=== PATIENT | male | born 1960 | race Caucasian/White ===

== ENCOUNTER 2016-07-02 08:36 | Inpatient (IN) | payer MEDICARE ==
[2016-07-02] MEDS ORDERED: SODIUM CHLORIDE 0.9% 500 ML IV STA (08:48)
--- NOTE | 2016-07-02 08:55 | ED ---
General Adult HPI - General Stated complaint: WEAKNESS Time Seen by Provider: 07/02/16 08:45 Source: RN notes reviewed - History of Present Illness Initial comments: This is a 55-year-old male who presents emergency Department with a past medical history significant for brain cancer, 2 heart attacks and CLL. Patient also has a history of having elevated CPK levels according to the patient and the they don't know why. Patient states today he feels as though his CPK level is elevated. Patient states he tried to get up or walk and he became too weak in his legs to stand and thought he was going to fall over. Patient did not however fall over. Patient states he has burning in both of his legs which is another signs CPK levels are elevated. Patient states she's had this occur approximately 5 times in the past. Patient denies any recent fever or chills. Patient denies any headache patient denies any new numbness or focal weakness. Patient denies any chest pain palpitations difficult to breathing or shortness of breath. Patient denies abdominal pain patient denies nausea vomiting or diarrhea. - Related Data Home Medications Medication Instructions Recorded Confirmed Clopidogrel [Plavix] 75 mg PO DAILY 07/02/16 07/02/16 DULoxetine HCL [Cymbalta] 60 mg PO DAILY 07/02/16 07/02/16 Dextroamphetamine/Amphetamine 10 mg PO BID 07/02/16 07/02/16 [Adderall] Ondansetron Odt [Zofran ODT] 4 mg PO Q6H PRN 07/02/16 07/02/16 Pantoprazole Sodium 40 mg PO DAILY 07/02/16 07/02/16 levETIRAcetam [Keppra] 1,250 mg PO BID 07/02/16 07/02/16 oxyCODONE HCL 30 mg PO Q6H PRN 07/02/16 07/02/16 traZODone HCL 200 mg PO HS 07/02/16 07/02/16 Allergies Allergy/AdvReac Type Severity Reaction Status Date / Time No Known Allergies Allergy Verified 07/02/16 08:51 Review of Systems ROS Statement: Those systems with pertinent positive or pertinent negative responses have been documented in the HPI. ROS Other: All systems not noted in ROS Statement are negative. General Exam - General Exam Comments Initial Comments: GENERAL: Patient is well-developed and well-nourished. Patient is nontoxic and well- hydrated and is in mild distress. ENT: Neck is soft and supple. No significant lymphadenopathy is noted. Oropharynx is clear. Moist mucous membranes. Neck has full range of motion without eliciting any pain. EYES: The sclera were anicteric and conjunctiva were pink and moist. Extraocular movements were intact and pupils were equal round and reactive to light. Eyelids were unremarkable. PULMONARY: Unlabored respirations. Good breath sounds bilaterally. No audible rales rhonchi or wheezing was noted. CARDIOVASCULAR: There is a regular rate and rhythm without any murmurs gallops or rubs. ABDOMEN: Soft and nontender with normal bowel sounds. No palpable organomegaly was noted. There is no palpable pulsatile mass. SKIN: Skin is clear with no lesions or rashes and otherwise unremarkable. NEUROLOGIC: Patient is alert and oriented x3. Cranial nerves II through XII are grossly intact. Patient is weakness of the left community health representative which she states is normal. I could not appreciate any weakness in the dorsi or plantar flexion of the left leg compared to the right.. Normal speech, volume and content. Symmetrical smile. MUSCULOSKELETAL: Normal extremities with adequate strength and full range of motion. No lower extremity swelling or edema. No calf tenderness. LYMPHATICS: No significant lymphadenopathy is noted PSYCHIATRIC: Normal psychiatric evaluation. Course Vital Signs 07/02/16 07/02/16 07/02/16 08:42 09:41 10:11 Temperature 97.6 F Pulse Rate 82 70 68 Respiratory 20 18 18 Rate Blood Pressure 143/92 120/65 111/63 O2 Sat by Pulse 98 95 Oximetry 07/02/16 07/02/16 11:11 11:41 Temperature Pulse Rate 65 64 Respiratory 18 18 Rate Blood Pressure 121/66 121/72 O2 Sat by Pulse 95 96 Oximetry Medical Decision Making - Medical Decision Making EKG shows a normal sinus rhythm at 74 bpm. It was 164 QRS is 84 QT interval 382. Patient's EKG shows no ST segment elevation or depression or T-wave abdomen is noted Computed tomography scan of his brain showed no acute bleed however the radiologist did look at the MRI and it showed an area of concern possible recurrence of tumor. Patient's chest x-ray showed no acute abnormality. I spoke with Dr. Barber he agreed to admit the patient and consult Dr. Montano - Lab Data Result diagrams: 07/02/16 08:48 07/02/16 08:48 Lab Results 07/02/16 07/02/16 07/02/16 Range/Units 08:48 08:48 08:48 WBC 45.7 H* (3.8-10.6) k/uL RBC 4.73 (4.30-5.90) m/uL Hgb 13.4 (13.0-17.5) gm/dL Hct 39.5 (39.0-53.0) % MCV 83.4 (80.0-100.0) fL MCH 28.4 (25.0-35.0) pg MCHC 34.0 (31.0-37.0) g/dL RDW 14.6 (11.5-15.5) % Plt Count 118 L (150-450) k/uL Neutrophils % (Manual) 6.0 % Lymphocytes % (Manual) 92.0 % Monocytes % (Manual) 0.5 % Eosinophils % (Manual) 1.5 % Neutrophils # (Manual) 2.7 (1.3-7.7) k/uL Lymphocytes # (Manual) 42.0 H (1.0-4.8) k/uL Monocytes # (Manual) 0.2 (0-1.0) k/uL Eosinophils # (Manual) 0.7 (0-0.7) k/uL Nucleated RBCs 0 (0-0) /100 WBC Manual Slide Review Performed Poikilocytosis (manual Present PT 10.2 (9.0-12.0) sec INR 1.0 (<1.1) APTT 23.7 (22.0-30.0) sec Sodium 139 (137-145) mmol/L Potassium 4.3 (3.5-5.1) mmol/L Chloride 100 (98-107) mmol/L Carbon Dioxide 26 (22-30) mmol/L Anion Gap 13 mmol/L BUN 18 (9-20) mg/dL Creatinine 1.21 (0.66-1.25) mg/dL Est GFR (MDRD) Af Amer >60 (>60 ml/min/1.73 sqM) Est GFR (MDRD) Non-Af >60 (>60 ml/min/1.73 sqM) Glucose 117 H (74-99) mg/dL Calcium 8.8 (8.4-10.2) mg/dL Magnesium 1.8 (1.6-2.3) mg/dL Total Bilirubin 1.2 (0.2-1.3) mg/dL AST 23 (17-59) U/L ALT 47 (21-72) U/L Alkaline Phosphatase 108 (38-126) U/L Total Creatine Kinase (55-170) U/L CK-MB (CK-2) (0.0-2.4) ng/mL CK-MB (CK-2) Rel Index Troponin I (0.000-0.034) ng/mL Total Protein 6.7 (6.3-8.2) g/dL Albumin 4.3 (3.5-5.0) g/dL Urine Color Urine Appearance (Clear) Urine pH (5.0-8.0) Ur Specific [place] (1.001-1.035) Urine Protein (Negative) Urine Glucose (UA) (Negative) Urine Ketones (Negative) Urine Blood (Negative) Urine Nitrate (Negative) Urine Bilirubin (Negative) Urine Urobilinogen (<2.0) mg/dL Ur Leukocyte Esterase (Negative) 07/02/16 07/02/16 Range/Units 08:50 11:30 WBC (3.8-10.6) k/uL RBC (4.30-5.90) m/uL Hgb (13.0-17.5) gm/dL Hct (39.0-53.0) % MCV (80.0-100.0) fL MCH (25.0-35.0) pg MCHC (31.0-37.0) g/dL RDW (11.5-15.5) % Plt Count (150-450) k/uL Neutrophils % (Manual) % Lymphocytes % (Manual) % Monocytes % (Manual) % Eosinophils % (Manual) % Neutrophils # (Manual) (1.3-7.7) k/uL Lymphocytes # (Manual) (1.0-4.8) k/uL Monocytes # (Manual) (0-1.0) k/uL Eosinophils # (Manual) (0-0.7) k/uL Nucleated RBCs (0-0) /100 WBC Manual Slide Review Poikilocytosis (manual PT (9.0-12.0) sec INR (<1.1) APTT (22.0-30.0) sec Sodium (137-145) mmol/L Potassium (3.5-5.1) mmol/L Chloride (98-107) mmol/L Carbon Dioxide (22-30) mmol/L Anion Gap mmol/L BUN (9-20) mg/dL Creatinine (0.66-1.25) mg/dL Est GFR (MDRD) Af Amer (>60 ml/min/1.73 sqM) Est GFR (MDRD) Non-Af (>60 ml/min/1.73 sqM) Glucose (74-99) mg/dL Calcium (8.4-10.2) mg/dL Magnesium (1.6-2.3) mg/dL Total Bilirubin (0.2-1.3) mg/dL AST (17-59) U/L ALT (21-72) U/L Alkaline Phosphatase (38-126) U/L Total Creatine Kinase 55 (55-170) U/L CK-MB (CK-2) 1.2 (0.0-2.4) ng/mL CK-MB (CK-2) Rel Index 2.2 Troponin I <0.012 (0.000-0.034) ng/mL Total Protein (6.3-8.2) g/dL Albumin (3.5-5.0) g/dL Urine Color Yellow Urine Appearance Clear (Clear) Urine pH 5.5 (5.0-8.0) Ur Specific [place] 1.016 (1.001-1.035) Urine Protein Trace H (Negative) Urine Glucose (UA) Negative (Negative) Urine Ketones Negative (Negative) Urine Blood Negative (Negative) Urine Nitrate Negative (Negative) Urine Bilirubin Negative (Negative) Urine Urobilinogen <2.0 (<2.0) mg/dL Ur Leukocyte Esterase Negative (Negative) Disposition Clinical Impression: Thrombocytopenia, Leukocytosis, Generalized weakness Disposition: ADMITTED IP TO THIS [facility] Time of Disposition: 12:27
[2016-07-02 09:06] LABS: Aty Lym Flag Moderate; CHCM 34.9; HCT 39.5 % (39.0-53.0); HDW 3.08; HGB 13.4 gm/dL (13.0-17.5); MCH 28.4 pg (25.0-35.0); MCV 83.4 fL (80.0-100.0); Mean Platelet Volume 6.3; RBC 4.73 m/uL (4.30-5.90); RDW 14.6 % (11.5-15.5); WBC (Perox) 47.67
[2016-07-02 09:15] LABS: Partial Thromboplastin Time 23.7 sec (22.0-30.0); Prothrombin Time 10.2 sec (9.0-12.0)
[2016-07-02 09:16] LABS: WBC 45.7 k/uL (3.8-10.6)
[2016-07-02 09:20] LABS: Add Differential Manual Differential
[2016-07-02 09:23] LABS: Manual Review Performed; Nucleated Red Blood Cells 0 /100 WBC (0-0); Total Cells Counted 200
[2016-07-02 09:30] LABS: ALT 47 U/L (21-72); AST 23 U/L (17-59); Alkaline Phosphatase 108 U/L (38-126); Anion Gap 13 mmol/L; Blood Urea Nitrogen 18 mg/dL (9-20); Calcium 8.8 mg/dL (8.4-10.2); Carbon Dioxide 26 mmol/L (22-30); Chloride 100 mmol/L (98-107); Glucose 117 mg/dL (74-99); Magnesium 1.8 mg/dL (1.6-2.3); Non-African American GFR(MDRD) >60 (>60 ml/min/1.73 sqM); Potassium 4.3 mmol/L (3.5-5.1); Sodium 139 mmol/L (137-145); Total Bilirubin 1.2 mg/dL (0.2-1.3); Total Protein 6.7 g/dL (6.3-8.2)
[2016-07-02 09:34] LABS: Creatine Kinase 55 U/L (55-170)
--- NOTE | 2016-07-02 09:42 | XR ---
EXAMINATION TYPE: XR chest 2V DATE OF EXAM: 07/02/2016 9:32 AM COMPARISON: NONE HISTORY: Chest pain FINDINGS: There is a central interstitial pattern with cardiomegaly. Left-sided central line seen. No pneumotho rax. No pleural effusion. IMPRESSION: 1. Cardiomegaly. Interstitial pattern likely chronic on the basis of chronic interstitial lung diseas freya
[2016-07-02 09:47] LABS: Creatine Kinase MB 1.2 ng/mL (0.0-2.4); Troponin I <0.012 ng/mL (0.000-0.034)
[2016-07-02 11:49] LABS: Appearance,Urine Clear (Clear); Bilirubin,Urine Negative (Negative); Glucose,Urine (UA) Negative (Negative); Ketones,Urine Negative (Negative); Leukocyte Esterase,Urine Negative (Negative); Nitrite,Urine Negative (Negative); PH, Urine 5.5 (5.0-8.0); Protein,Urine Trace (Negative); Specific Gravity,Urine 1.016 (1.001-1.035); UA Billing (MACRO vs. MICRO) CHEM; Urobilinogen,Urine <2.0 mg/dL (<2.0)
--- NOTE | 2016-07-02 11:54 | CT ---
EXAMINATION TYPE: CT brain wo con DATE OF EXAM: 07/02/2016 11:01 AM COMPARISON: MRI brain June 24, 2016. HISTORY: Left sided weakness CT DLP: 1192 mGycm Automated exposure control for dose reduction was used. FINDINGS: There is no acute intracranial hemorrhage or midline shift identified. There is ventricular and sulca l prominence consistent with diffuse cerebral atrophy redemonstrated. Surgical changes from right pa rietal craniotomy with adjacent encephalomalacia and dystrophic calcification is redemonstrated. Enha ncing residual tumor may be present seen best on recent MRI in the deep aspect. Low-attenuation in th e periventricular white matter is again seen. This is nonspecific finding. The globes are intact and the visualized sinuses are clear. IMPRESSION: No acute intracranial hemorrhage or midline shift is seen. Postsurgical changes right parietal region are present with diffuse cerebral atrophy and right parietal encephalomalacia, nonspecific enhanceme nt on recent MRI suggests recurrent tumor may be present. Nonspecific white matter changes could refl ect product of chronic small vessel ischemic change, cerebral edema, or posttreatment changes. Overal l no significant change from recent MRI is noted.
[2016-07-02] MEDS ORDERED: SODIUM CHLORIDE 0.9% 1,000 ML IV ONE (12:28)
[2016-07-02 14:00] VITALS: BMI 34.2
[2016-07-02] MEDS: NICOTINE 21MG/24HR PATCH TRANSDERM SCH (16:22)
[2016-07-02] MEDS: levETIRAcetam 250 MG TAB PO SCH (19:52)
[2016-07-02] MEDS: traZODone HCL 100 MG TAB PO SCH (19:53)
[2016-07-03] MEDS: levETIRAcetam 250 MG TAB PO SCH ×2 (07:37→20:20)
[2016-07-03] MEDS: NICOTINE 21MG/24HR PATCH TRANSDERM SCH (07:38)
[2016-07-03] MEDS: PANTOPRAZOLE 40 MG TABLET PO SCH (07:38)
[2016-07-03] MEDS: CLOPIDOGREL 75 MG TAB PO SCH (07:38)
[2016-07-03] MEDS: DULoxetine HCL 60 MG CAPSULE.DR PO SCH (07:38)
--- NOTE | 2016-07-03 12:04 | P.CONS ---
History of Present Illness - Reason for Consult Consult date: 07/03/16 Generalized weakness. CLL and brain tumor - History of Present Illness The patient is a 55-year-old gentleman, who was recently seen by Dr. oshea in the office , to establish care, on 06/14/2016. The patient had presented initially in 04/15, in [place] with left-sided weakness and mental status changes. 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 A biopsy could not be performed initially because of an acute myocardial infarction at the same time. He was treated with neoadjuvant chemotherapy (type unknown), and concurrent radiation therapy. He subsequently had surgery which revealed mostly necrotic material. Progress notes that were seen by Dr. oshea from his previous physician apparently described small area of oligodendroglioma. The patient was then placed on Avastin and had that for about 6 months. This was then discontinued due to kidney complications. The patient does have a long- standing history of CLL, which has been followed without any need for treatment so far. Interestingly, he gives a history of about 3 episodes of muscle weakness and pain due to elevated CPKs, the most recent in September 2015. Per his the cause for this episodes is not known. Results of any workup in this regard are not available to us. Per his , he has not had a muscle biopsy. When seen by Dr. oshea in the office, the patient was complaining of increased generalized headaches, over the past few weeks as well as intermittent nausea. At that time apparently he had some weakness but overall and tolerating well. An MRI was done on 06/24/2016. Over the last week to 10 days, the patient has been having increased generalized weakness. Per his , he has developed progressive difficulty in walking, with muscles appearing to " contract", and "give out". He came into the emergency room due to progression of these symptoms. Labs revealed elevated white count in the 45, 000 range, with mostly lymphocytes seen. Platelets are mildly low at 118. He was admitted for further management. Review of Systems Constitutional: Reports weakness Eyes: denies blurred vision, denies pain Ears: deny: decreased hearing, ear discharge, earache, tinnitus Ears, nose, mouth and throat: Denies headache, Denies sore throat Cardiovascular: Reports as per HPI (History of CO), Reports decreased exercise tolerance Respiratory: Denies cough Gastrointestinal: Reports nausea, Denies abdominal pain, Denies diarrhea, Denies vomiting Genitourinary: Reports as per HPI (No specific complaint) Musculoskeletal: Reports as per HPI (History of elevated CPKs intermittently), Reports muscle cramps, Reports muscle weakness Integumentary: Denies pruritus, Denies rash Neurological: Reports as per HPI, Reports gait dysfunction, Reports weakness Psychiatric: Reports anxiety, Reports depression Endocrine: Denies fatigue, Denies weight change Hematologic/Lymphatic: Reports as per HPI Past Medical History Past Medical History: Cancer, Deep Vein Thrombosis (DVT), Hyperlipidemia, Memory Impairment, Myocardial Infarction ([place]), Osteoarthritis (OA), Seizure Disorder Additional Past Medical History / Comment(s): brain cancer, leukemia Last Myocardial Infarction Date:: 2012 History of Any Multi-Drug Resistant Organisms: None Reported Past Surgical History: Cholecystectomy, Heart Catheterization With Stent Additional Past Surgical History / Comment(s): brain surgery x2, IVF filter, metaport, fatty tumor removals, left knee orthoscopic Past Anesthesia/Blood Transfusion Reactions: No Reported Reaction Date of Last Stent Placement:: 2010 Past Psychological History: Anxiety, Depression Smoking Status: Current every day smoker Past Alcohol Use History: None Reported Past Drug Use History: None Reported - Past Family History Mother Family Medical History: Chest Pain / Angina, Diabetes Mellitus Father History Unknown: Yes Medications and Allergies Home Medications Medication Instructions Recorded Confirmed Type Clopidogrel [Plavix] 75 mg PO DAILY 07/02/16 07/02/16 History DULoxetine HCL [Cymbalta] 60 mg PO DAILY 07/02/16 07/02/16 History Dextroamphetamine/Amphetamine 10 mg PO BID 07/02/16 07/02/16 History [Adderall] Ondansetron Odt [Zofran ODT] 4 mg PO Q6H PRN 07/02/16 07/02/16 History Pantoprazole Sodium 40 mg PO DAILY 07/02/16 07/02/16 History levETIRAcetam [Keppra] 1,250 mg PO BID 07/02/16 07/02/16 History oxyCODONE HCL 30 mg PO Q6H PRN 07/02/16 07/02/16 History traZODone HCL 200 mg PO HS 07/02/16 07/02/16 History Allergies Allergy/AdvReac Type Severity Reaction Status Date / Time No Known Allergies Allergy Verified 07/02/16 08:51 Physical Exam Vitals: Vital Signs Temp Pulse Pulse Resp BP BP Pulse Ox 07/03/16 07:00 97.5 F L 59 L 16 111/60 94 L 07/02/16 22:06 97.2 F L 55 L 18 121/55 97 07/02/16 15:00 97.6 F 57 L 20 113/65 95 07/02/16 13:02 97.7 F 70 18 124/69 98 Intake and Output 07/02/16 07/03/16 07/03/16 22:59 06:59 14:59 Intake Total 600 Output Total 200 Balance 400 Intake: IV 600 Sodium Chloride 0.9% 1, 600 000 ml @ 75 mls/hr IV . [id number] ONE Rx#:[id number] Output: Urine 200 Other: # Voids 1 2 - Constitutional General appearance: no acute distress - EENT Eyes: EOMI, PERRLA ENT: hearing grossly normal, normal oropharynx - Neck Neck: no lymphadenopathy Thyroid: bilateral: normal size - Respiratory Respiratory: bilateral: CTA - Cardiovascular Rhythm: regular Heart sounds: normal: S1, S2 - Gastrointestinal General gastrointestinal: normal bowel sounds, soft - Integumentary Integumentary: normal - Neurologic Neurologic: CNII-XII intact, focal deficits (Left upper and lower extremity strength is 5 over 5, but slightly less compared to the right) - Musculoskeletal Musculoskeletal: generalized weakness, left sided weakness - Psychiatric Psychiatric: A&O x's 3, appropriate affect Results CBC & Chem 7: 07/02/16 08:48 07/02/16 08:48 CT Scan - head: report reviewed MRI - head: image reviewed Assessment and Plan (1) Generalized weakness Narrative/Plan: The etiology of this is not clear at this time. The patient does have some chronic left-sided weakness which is overall subtle. On examination strength in the left upper and lower extremities appears to be quite satisfactory. This presentation this time is more generalized as noted. He has had prior history of elevated CPKs, but these were normal this admission. The patient's MRI images reviewed. A formal report is not yet available, but per the CT brain report, which was compared to the MRI, there appears to be only a small area of vague enhancement possibly consistent with persistent or recurrent tumor. Per the , by description, this appears to be fairly stable compared to his prior MRI that was done out of town. She has contacted his previous position and the old MRI is being dispatched by that office. Once available, this will be submitted for comparison to see if there is really any progression or not. In the meantime, I will check Keppra levels and thyroid studies. A neurology consult will be initiated. I will also check an aldolase level Status: Acute (2) Leukocytosis Narrative/Plan: This is due to his known CLL, which has not required any treatment so far. His , his white blood cell count is higher than before. However he appears to have no specific symptoms related to that, with no adenopathy on exam, normal hemoglobin, and only a mildly low platelet count. Therefore at this time the CLL appears to be is asymptomatic, with no need for treatment. Rarely in CLL, autoimmune phenomenon can occur, even without any progression of the CLL itself. Theoretically a process like this, could cause the patient' s symptoms. However on less there is definite evidence of the same, there would be no indication for treating the CLL itself at this time Status: Acute
--- NOTE | 2016-07-03 14:47 | P.HPIM ---
History of Present Illness H&P Date: 07/03/16 Chief Complaint: Generalized weakness Patient is a 55-year-old male who presented to [facility] emergency room with a chief complaint of generalized weakness. Patient was initially in [place], where he was diagnosed in April 2014 with brain tumor he had a large right sided parietal tumor he was treated with chemotherapy and radiation therapy no biopsy was done initiated due to patient having myocardial infarction at the same time. Patient also has known history of CLL was elevated white blood count his white blood count was in the range of 45,000 on presentation Patient is living in this area currently he recently established was Dr. Montano for continuing his care. MRI of the brain was recently done, no reading is available, radiologist is waiting for old pictures for comparison prior to official reading. Past Medical History Past Medical History: Cancer, Deep Vein Thrombosis (DVT), Hyperlipidemia, Memory Impairment, Myocardial Infarction ([place]), Osteoarthritis (OA), Seizure Disorder Additional Past Medical History / Comment(s): brain cancer, leukemia Last Myocardial Infarction Date:: 2012 History of Any Multi-Drug Resistant Organisms: None Reported Past Surgical History: Cholecystectomy, Heart Catheterization With Stent Additional Past Surgical History / Comment(s): brain surgery x2, IVF filter, metaport, fatty tumor removals, left knee orthoscopic Past Anesthesia/Blood Transfusion Reactions: No Reported Reaction Date of Last Stent Placement:: 2010 Past Psychological History: Anxiety, Depression Smoking Status: Current every day smoker Past Alcohol Use History: None Reported Past Drug Use History: None Reported - Past Family History Mother Family Medical History: Chest Pain / Angina, Diabetes Mellitus Father History Unknown: Yes Medications and Allergies Home Medications Medication Instructions Recorded Confirmed Type Clopidogrel [Plavix] 75 mg PO DAILY 07/02/16 07/02/16 History DULoxetine HCL [Cymbalta] 60 mg PO DAILY 07/02/16 07/02/16 History Dextroamphetamine/Amphetamine 10 mg PO BID 07/02/16 07/02/16 History [Adderall] Ondansetron Odt [Zofran ODT] 4 mg PO Q6H PRN 07/02/16 07/02/16 History Pantoprazole Sodium 40 mg PO DAILY 07/02/16 07/02/16 History levETIRAcetam [Keppra] 1,250 mg PO BID 07/02/16 07/02/16 History oxyCODONE HCL 30 mg PO Q6H PRN 07/02/16 07/02/16 History traZODone HCL 200 mg PO HS 07/02/16 07/02/16 History Allergies Allergy/AdvReac Type Severity Reaction Status Date / Time No Known Allergies Allergy Verified 07/02/16 08:51 Physical Exam Vitals: Vital Signs Temp Pulse Resp BP Pulse Ox 07/03/16 07:00 97.5 F L 59 L 16 111/60 94 L 07/02/16 22:06 97.2 F L 55 L 18 121/55 97 07/02/16 15:00 97.6 F 57 L 20 113/65 95 Intake and Output 07/02/16 07/03/16 07/03/16 22:59 06:59 14:59 Intake Total 600 Output Total 200 Balance 400 Intake: IV 600 Sodium Chloride 0.9% 1, 600 000 ml @ 75 mls/hr IV . [id number] ONE Rx#:[id number] Output: Urine 200 Other: # Voids 1 2 In general patient is alert and oriented 3 in no apparent distress HEENT head normocephalic and atraumatic Neck is supple no JVD no goiter no lymphadenopathy Chest exam reveals a few scattered crackles no wheezing Cardiac exam reveals regular heart sounds no gallops no murmurs Abdomen is soft nontender no organomegaly Extremity exam reveals no edema no cyanosis or clubbing Results CBC & Chem 7: 07/02/16 08:48 07/02/16 08:48 Thrombosis Risk Factor Assmnt - Choose All That Apply Each Factor Represents 1 point: Acute [place], Age 41-60 years Other Risk Factors: Yes Each Risk Factor Represents 3 Points: History of DVT/PE Other congenital or acquired thrombophilia - If yes, enter type in comment: No Thrombosis Risk Factor Assessment Total Risk Factor Score: 5 Thrombosis Risk Factor Assessment Level: High Risk Assessment and Plan Plan: #1 generalized weakness and fatigue, cause is not entirely clear, could be related to his previous treatment for cancer, could be related to CLL, thyroid function is normal, no evidence of any acute infection at this time will follow closely awaiting further input from oncology #2 brain tumor awaiting MRI report #3 known history of CLL was leukocytosis #4 previous history of DVT in the right lower extremity with IV filter placement #5 history of coronary artery disease was previous history of myocardial infarction and a known history of angioplasty with stent placement
[2016-07-03 15:31] LABS: Appearance,Urine Clear (Clear); Bilirubin,Urine Negative (Negative); Glucose,Urine (UA) Negative (Negative); Ketones,Urine Negative (Negative); Leukocyte Esterase,Urine Negative (Negative); Nitrite,Urine Negative (Negative); PH, Urine 5.5 (5.0-8.0); Protein,Urine Negative (Negative); Specific Gravity,Urine 1.013 (1.001-1.035); UA Billing (MACRO vs. MICRO) CHEM; Urobilinogen,Urine <2.0 mg/dL (<2.0)
[2016-07-03] MEDS: traZODone HCL 100 MG TAB PO SCH (20:20)
[2016-07-03] MEDS: ONDANSETRON ODT 4 MG TAB PO PRN (20:20)
[2016-07-04] MEDS: PANTOPRAZOLE 40 MG TABLET PO SCH (07:48)
[2016-07-04] MEDS: levETIRAcetam 250 MG TAB PO SCH ×2 (07:48→21:45)
[2016-07-04] MEDS: DULoxetine HCL 60 MG CAPSULE.DR PO SCH (07:49)
[2016-07-04] MEDS: NICOTINE 21MG/24HR PATCH TRANSDERM SCH (07:49)
[2016-07-04] MEDS: CLOPIDOGREL 75 MG TAB PO SCH (07:49)
[2016-07-04 09:32] LABS: Aty Lym Flag Slight; CH 29.1; CHCM 34.6; HCT 40.6 % (39.0-53.0); HDW 3.08; HGB 13.3 gm/dL (13.0-17.5); MCH 27.8 pg (25.0-35.0); MCHC 32.7 g/dL (31.0-37.0); MCV 84.9 fL (80.0-100.0); Mean Platelet Volume 7.2; RBC 4.78 m/uL (4.30-5.90); RDW 14.6 % (11.5-15.5); WBC (Perox) 38.23
[2016-07-04 09:36] LABS: WBC 39.3 k/uL (3.8-10.6)
[2016-07-04 09:42] LABS: ALT 41 U/L (21-72); AST 21 U/L (17-59); Alkaline Phosphatase 101 U/L (38-126); Anion Gap 10 mmol/L; Blood Urea Nitrogen 14 mg/dL (9-20); Calcium 9.1 mg/dL (8.4-10.2); Carbon Dioxide 27 mmol/L (22-30); Chloride 102 mmol/L (98-107); Glucose 91 mg/dL (74-99); Non-African American GFR(MDRD) >60 (>60 ml/min/1.73 sqM); Sodium 139 mmol/L (137-145); Total Bilirubin 1.2 mg/dL (0.2-1.3); Total Protein 6.3 g/dL (6.3-8.2)
[2016-07-04 09:45] LABS: Potassium 4.6 mmol/L (3.5-5.1)
[2016-07-04 10:19] LABS: Add Differential Manual Differential
[2016-07-04 10:28] LABS: Band Neutrophils % 0.5 %; Manual Review Performed; Nucleated Red Blood Cells 0 /100 WBC (0-0); Total Cells Counted 200
[2016-07-04] MEDS ORDERED: LACTULOSE 20 GM/30 ML CUP PO ONE (11:48)
--- NOTE | 2016-07-04 12:09 | P.PN ---
Subjective This is a 55-year-old male with a known large right-sided parietal tumor. He presented with generalized weakness. Complaining of fatigue. Oncology has evaluated him and recommended neurology evaluation. Patient lying in bed comfortably. Complains of headache at times. reported to nursing that he' s been having constipation. Patient denies any abdominal pain. Denies any nausea or vomiting. Denies any chest pain or shortness of breath. Denies any difficulty urinating. Objective - Vital Signs Vital signs: Vital Signs Temp 97.8 F 07/04/16 07:00 Pulse 58 L 07/04/16 07:00 Resp 16 07/04/16 07:00 BP 113/64 07/04/16 07:00 Pulse Ox 92 L 07/04/16 07:00 Intake & Output 07/03/16 07/04/16 07/04/16 18:59 06:59 18:59 Intake Total 2009 Balance 2009 Intake: Oral 2009 Other: # Voids 1 3 - Exam Head normocephalic Neck supple Lungs clear to auscultation bilaterally no wheezing or crackles Heart regular rate and rhythm S1-S2, no rub or gallop Abdomen is soft nontender nondistended positive bowel sounds no hepatosplenomegaly Extremities no edema Neuro alert and orientated to 3 - Labs CBC & Chem 7: 07/04/16 08:48 07/04/16 08:48 Labs: Abnormal Lab Results - Last 24 Hours (Table) 07/04/16 Range/Units 08:48 WBC 39.3 H* (3.8-10.6) k/uL Plt Count 107 L (150-450) k/uL Lymphocytes # (Manual) 34.4 H (1.0-4.8) k/uL Assessment and Plan Plan: #1 generalized weakness and fatigue, cause is not entirely clear, could be related to his previous treatment for cancer, could be related to CLL, thyroid function is normal, no evidence of any acute infection at this time will follow closely. Patient seen by oncology. They recommended neurology evaluation. #2 brain tumor awaiting MRI report #3 known history of CLL was leukocytosis #4 previous history of DVT in the right lower extremity with IV filter placement #5 history of coronary artery disease was previous history of myocardial infarction and a known history of angioplasty with stent placement #6 constipation: We'll give 1 dose of lactulose and start Colace 100 milligrams twice a day
[2016-07-04] MEDS: DOCUSATE 100 MG CAP PO SCH ×2 (12:11→21:44)
[2016-07-04] MEDS: NON-FORMULARY DRUG (Dextroamphetamine/Amphetamine [Adderall] 10 MG) PO SCH (16:45)
[2016-07-04] MEDS: HYDROmorphone 1 MG/ML 1 ML SYRINGE IVP PRN (19:20)
[2016-07-04] MEDS: traZODone HCL 100 MG TAB PO SCH (21:45)
--- NOTE | 2016-07-04 22:40 | P.CNNES ---
History of Present Illness Consult date: 07/04/16 Requesting physician: Price Stevenson Reason for Consult: Muscle Weakness Chief complaint: Muscle Weakness- Left Side History of Present Illness: patient is a 55-year-old male presented to [facility] emergency department with generalized weakness. 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 Biopsy was not performed at that time to do a concurrent myocardial infarction occurring. He had a large right-sided parietal tumor that was treated with chemotherapy, radiation therapy and a debulking or removal of necrotic material. 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 patient was placed on Avastin for possibly 6 months. This was discontinued due to kidney complications. 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 Patient does have muscle weakness and pain due to elevated CPKs, the most recent in September 2015. The underlying etiology for this is unknown. Other supporting medical documentation is limited at this time. Over the past several weeks, the patient's been complaining of increased generalized headaches, as well as intermittent nausea. He did have some generalized weakness but overall is tolerating the condition well. MRI was done on June 24, 2016. Since that time the patient's generalized weakness has been increasing. He has reportedly developed progressive difficulty in ambulating, with muscles appearing to contract and give out. Laboratory analysis revealed elevated white blood counts in the 45,000 range with mostly lymphocytes seen. Platelets are mildly low at 118. At that time he was admitted for further management. On contact, the patient is alert and oriented 3 supine in bed with his at his side. He is in no acute distress. Patient reports weakness of the left upper and lower extremities, intermittent but recurring upper extremity stiffness and spasticity. Review of Systems I'll systems not previously noted above are negative. Past Medical History Past Medical History: Cancer, Deep Vein Thrombosis (DVT), Hyperlipidemia, Memory Impairment, Myocardial Infarction (GA), Osteoarthritis (OA), Seizure Disorder Additional Past Medical History / Comment(s): brain cancer, leukemia Last Myocardial Infarction Date:: 2012 History of Any Multi-Drug Resistant Organisms: None Reported Past Surgical History: Cholecystectomy, Heart Catheterization With Stent Additional Past Surgical History / Comment(s): brain surgery x2, IVF filter, metaport, fatty tumor removals, left knee orthoscopic Past Anesthesia/Blood Transfusion Reactions: No Reported Reaction Date of Last Stent Placement:: 2010 Past Psychological History: Anxiety, Depression Smoking Status: Current every day smoker Past Alcohol Use History: None Reported Past Drug Use History: None Reported - Past Family History Mother Family Medical History: Chest Pain / Angina, Diabetes Mellitus Father History Unknown: Yes Medications and Allergies Home Medications Medication Instructions Recorded Confirmed Type Clopidogrel [Plavix] 75 mg PO DAILY 07/02/16 07/02/16 History DULoxetine HCL [Cymbalta] 60 mg PO DAILY 07/02/16 07/02/16 History Dextroamphetamine/Amphetamine 10 mg PO BID 07/02/16 07/02/16 History [Adderall] Ondansetron Odt [Zofran ODT] 4 mg PO Q6H PRN 07/02/16 07/02/16 History Pantoprazole Sodium 40 mg PO DAILY 07/02/16 07/02/16 History levETIRAcetam [Keppra] 1,250 mg PO BID 07/02/16 07/02/16 History oxyCODONE HCL 30 mg PO Q6H PRN 07/02/16 07/02/16 History traZODone HCL 200 mg PO HS 07/02/16 07/02/16 History Allergies Allergy/AdvReac Type Severity Reaction Status Date / Time No Known Allergies Allergy Verified 07/02/16 08:51 Physical Examination - Vital Signs Vital Signs: Vital Signs Temp Pulse Resp BP Pulse Ox 07/04/16 15:00 97.7 F 53 L 18 118/66 97 07/04/16 07:00 97.8 F 58 L 16 113/64 92 L 07/03/16 22:32 97.6 F 63 16 120/67 94 L 07/03/16 22:30 63 16 Intake and Output 07/04/16 07/04/16 07/04/16 06:59 14:59 22:59 Intake Total 240 Balance 240 Intake: Oral 240 Other: # Voids 3 3 - Constitutional General appearance: average body habitus, cooperative, no disheveled, no acute distress - EENT Patient is noted to have left side peripheral vision decline, decreased acuity in the left eye, decreased depth perception in the left eye. EENT: ATNC, PERRL, hearing intact - Respiratory no increased work of breathing - Cardiovascular regular rate and rhythm - Gastrointestinal nontender nondistended - Integumentary Integumentary: normal - Neurologic Cranial nerve II: Decreased peripheral vision- the left eye Decreased visual acuity and depth perception- left eye. Finger to nose reproducible -dysmetria with the left hand Cranial nerve III: Slight left upper eyelid ptosis. Cranial nerve IV: No deficits noted Cranial nerve V: No deficits noted Cranial nerves : No deficits noted Cranial nerve VII: Slight ptosis of the left upper eyelid left upper lip droopvery slight Cranial nerve VIII: Decreased hearing acuity in the left ear versus right Cranial nerve IX and cranial nerve X: No deficits noted Cranial nerve XI: No deficits noted Cranial nerve XII: No deficit noted Sensory: Right facial greater than left Right upper extremity greater than left Left lower extremity greater than right No seizure-like activity noted during physical exam Speech and language were normal - Musculoskeletal Generalized weakness, left-sided greater than right both upper and lower extremites. Weakness on left upper and lower extremity testing especially with resistance to extension. Musculoskeletal: no fluid collection, normal range of motion - Psychiatric Psychiatric: mood/affect appropriate, cooperative Results - Laboratory Findings CBC and BMP: 07/04/16 08:48 07/04/16 08:48 Abnormal Lab Findings: Abnormal Labs 07/04/16 08:48 WBC 39.3 H* Plt Count 107 L Lymphocytes # (Manual) 34.4 H - Diagnostic Findings Comments: CT of the brain reports when compared with MRI there appears to be only a small area of vague enhancement possibly consistent with persistent or recurrent tumor. The old MRI from [place] has been requested and is reportedly going to arrive tomorrow for comparison. Assessment and Plan (1) Generalized weakness Status: Acute (2) Intracranial space-occupying lesion on diagnostic imaging Narrative/Plan: It is noted that the patient possibly has consistent/persistent recurrent tumor. Until the imaging can be compared, it is unknown if the patient's current status is related to an increase from his previous baseline. On physical exam, the patient does have noted visual acuity decline on the left , depth perception decline in the left eye as well as left hearing decline. He also has sensory differences in the upper versus lower extremities as well as decreased strength in the left side. (see PE notations) I am going to order an EEG to further investigate any other neurological underlying neurological etiology. Awaiting further documentation from [place] with further recommendations to follow. Continue with current medication regime. Continue with seizure and fall precautions Keppra level ordered for 07/05/16 Continue neuro checks q4 hrs. Call with any questions or concerns Neurology will continue to follow. Status: Acute
[2016-07-05] MEDS: HYDROmorphone 1 MG/ML 1 ML SYRINGE IVP PRN ×2 (05:59→15:00)
[2016-07-05] MEDS: NICOTINE 21MG/24HR PATCH TRANSDERM SCH (06:13)
[2016-07-05] MEDS: ACETAMINOPHEN TAB 325 MG TAB PO PRN (06:37)
[2016-07-05 08:26] LABS: Aty Lym Flag Slight; CH 28.7; CHCM 34.4; HCT 35.4 % (39.0-53.0); HDW 3.04; HGB 12.1 gm/dL (13.0-17.5); MCH 28.8 pg (25.0-35.0); MCHC 34.2 g/dL (31.0-37.0); MCV 84.1 fL (80.0-100.0); Mean Platelet Volume 6.8; RBC 4.21 m/uL (4.30-5.90); RDW 14.3 % (11.5-15.5); WBC (Perox) 29.26
[2016-07-05 08:46] LABS: ALT 38 U/L (21-72); AST 16 U/L (17-59); Alkaline Phosphatase 92 U/L (38-126); Anion Gap 13 mmol/L; Blood Urea Nitrogen 15 mg/dL (9-20); Calcium 8.4 mg/dL (8.4-10.2); Carbon Dioxide 25 mmol/L (22-30); Chloride 101 mmol/L (98-107); Glucose 153 mg/dL (74-99); Non-African American GFR(MDRD) >60 (>60 ml/min/1.73 sqM); Sodium 139 mmol/L (137-145); Total Protein 5.7 g/dL (6.3-8.2)
[2016-07-05] MEDS: levETIRAcetam 250 MG TAB PO SCH ×2 (09:25→20:43)
[2016-07-05] MEDS: CLOPIDOGREL 75 MG TAB PO SCH (09:26)
[2016-07-05] MEDS: DOCUSATE 100 MG CAP PO SCH ×2 (09:26→20:43)
[2016-07-05] MEDS: PANTOPRAZOLE 40 MG TABLET PO SCH (09:26)
[2016-07-05] MEDS: DULoxetine HCL 60 MG CAPSULE.DR PO SCH (09:26)
[2016-07-05] MEDS: NON-FORMULARY DRUG (Dextroamphetamine/Amphetamine [Adderall] 10 MG) PO SCH ×2 (10:15→16:38)
[2016-07-05 10:32] LABS: Add Differential Manual Differential
[2016-07-05 10:36] LABS: Nucleated Red Blood Cells 0 /100 WBC (0-0); Total Cells Counted 100
[2016-07-05] MEDS ORDERED: DIAZEPAM 5 MG TAB PO STA (11:34)
[2016-07-05] MEDS: ONDANSETRON ODT 4 MG TAB PO PRN (15:19)
--- NOTE | 2016-07-05 15:39 | P.PN ---
Subjective Patient is scheduled for brain MRI today. He is requesting valium as his claustrophobic. Objective - Vital Signs Vital signs: Vital Signs Temp 98.4 F 07/05/16 14:47 Pulse 63 07/05/16 14:47 Resp 16 07/05/16 14:47 BP 127/59 07/05/16 14:47 Pulse Ox 96 07/05/16 14:47 Intake & Output 07/04/16 07/05/16 07/05/16 18:59 06:59 18:59 Intake Total 940 450 Output Total 200 Balance 740 450 Intake: IV 450 Sodium Chloride 0.9% 1, 450 000 ml @ 75 mls/hr IV . [id number] ONE Rx#:[id number] Oral 940 Output: Urine 200 Other: # Voids 3 2 # Bowel Movements 1 - Exam General: The patient is awake and alert, in no distress Eye: there is normal conjunctiva bilaterally. Neck: The neck is supple, there is no JVD. Cardiovascular: Normal S1-S2, no S3-S4, no murmurs. Respiratory: Lungs clear to auscultation bilaterally Gastrointestinal: Abdomen is soft, nontender Musculoskeletal: There is no pedal edema. Neurological:. Speech is normal. Skin: Skin is warm and dry - Labs CBC & Chem 7: 07/05/16 07:51 07/05/16 07:51 Labs: Abnormal Lab Results - Last 24 Hours (Table) 07/05/16 07/05/16 Range/Units 07:51 07:51 WBC 28.0 H* (3.8-10.6) k/uL RBC 4.21 L (4.30-5.90) m/uL Hgb 12.1 L (13.0-17.5) gm/dL Hct 35.4 L (39.0-53.0) % Plt Count 102 L (150-450) k/uL Lymphocytes # (Manual) 24.9 H (1.0-4.8) k/uL Glucose 153 H (74-99) mg/dL AST 16 L (17-59) U/L Total Protein 5.7 L (6.3-8.2) g/dL Assessment and Plan Plan: #1 generalized weakness and fatigue, multifactorial, could be related to underlying malignancy. thyroid function is normal, no evidence of any acute infection at this time will follow closely. #2 history of primary glioma of the brain status post chemo and radiation therapy in the past: Oncology following. Concerns about recurrence of his disease. MRI ordered today. #3 underlying CLL with chronic leukocytosis #4 previous history of DVT in the right lower extremity with IV filter placement #5 history of coronary artery disease with stent placement #6 constipation: started Colace 100 milligrams twice a day Patient was seen and evaluated by oncology and neurology. Appreciate fundraising consultant recommendations. Awaiting MRI report.
--- NOTE | 2016-07-05 18:45 | MR ---
EXAMINATION TYPE: MR kirstinine/lspine wo/w con DATE OF EXAM: 07/05/2016 1:35 PM COMPARISON: NONE HISTORY: left upper extremity weakness CONTRAST: Performed utilizing 20 mL intravenous MultiHance gadolinium contrast. TECHNIQUE: Multiplanar multiecho imaging on a 3.0 Jennifer magnet is performed through the cervical spin e. FINDINGS: The craniovertebral junction is normal. Vertebral body alignment is normal. Multiple lym ph nodes are identified within the bilateral neck. Consider additional workup of the lymphadenopathy. C7-T1: No focal disc herniation or significant disc bulge is evident. No spinal canal stenosis or n eural foraminal stenosis is present. C6-7: No focal disc herniation or significant disc bulge is evident. No spinal canal stenosis or verna ral foraminal stenosis is present. C5-6: Disc bulge is present with moderate anterior thecal sac flattening. No AP spinal canal stenosis is present. Moderate right and mild left foraminal narrowing is present. Some cord contact from the disc bulge is present.. C4-5: Central left paracentral mild disc bulge is present with mild anterior thecal sac compression. Mild right foraminal narrowing is present. No spinal canal stenosis is present.. C3-4: No focal disc herniation or significant disc bulge is evident. No spinal canal stenosis or verna ral foraminal stenosis is present. C2-3: No focal disc herniation or significant disc bulge is evident. No spinal canal stenosis or verna ral foraminal stenosis is present. No abnormal enhancement is evident. Mild disc space narrowing is present C5-C6. Remaining disc height s are preserved. Vertebral body heights are preserved. IMPRESSIONS: 1. Disc bulge C5-6 with moderate flattening. Some cord contact is present. 2. Mild left paracentral disc bulge C4-5 without cord contact or stenosis. EXAMINATION TYPE: MR saturnino/jebpine wo/w con DATE OF EXAM: 07/05/2016 1:35 PM COMPARISON: NONE HISTORY: left upper extremity weakness CONTRAST: 20 mL intravenous MultiHance. TECHNIQUE: Multiplanar, multisequence images of the lumbar spine were acquired. FINDINGS: L5-S1: No significant disc bulge or disc herniation. No spinal canal stenosis. Facet hypertrophy is present. Neural foramen are patent.. L4-L5: No significant disc bulge or disc herniation. No spinal canal stenosis. Marked facet hypertr ophy is present. Some ligamentum flavum laxity is present with posterior lateral thecal sac compressi on. Neural foramen are patent. L3-L4: No significant disc bulge or disc herniation. No spinal canal stenosis. Mild facet hypertrop hy is present. Neural foramen are patent.. L2-L3: No significant disc bulge or disc herniation. No spinal canal stenosis. Neural foramen are pa tent.. L1-L2: No significant disc bulge or disc herniation. No spinal canal stenosis. Neural foramen are pa tent.. T12-L1: No significant disc bulge or disc herniation. No spinal canal stenosis. Neural foramen are p atent.. No abnormal enhancement. Cord terminates at the L1-L2 level. Disc desiccation is present L5-S1. Remai tera disc heights are preserved. Remaining disc hydration levels appear preserved. IMPRESSION: 1. Facet hypertrophy L4-5 with posterior lateral thecal sac compression. No stenosis is present.
[2016-07-05] MEDS: traZODone HCL 100 MG TAB PO SCH (20:43)
[2016-07-05] MEDS: HEPARIN SODIUM,PORCINE 5,000 UNIT/ML 1 ML VIAL SQ SCH (20:52)
--- NOTE | 2016-07-05 23:07 | P.PN ---
Subjective Principal diagnosis: Muscle Weakness The patient is a 55-year-old male who presented to [facility] emergency department with generalized weakness. He was initially residing in [place] where he was diagnosed in April 2014 with brain tumor, consistent with a primary glioma on MRI. Biopsy was not performed at that time due to a concurrent myocardial infarction. He had a large right-sided parietal tumor that was treated with chemotherapy, radiation therapy and a debulking removal of necrotic material. Progress notes reference by primary care provider notes that the tumor was describes a small area of Oligodendroglioma. Patient was placed on a vast in for possibly up to 6 months. This was discontinued due to kidney complications. 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 Patient does have muscle weakness and pain due to elevated CPKs, the most recent in September 2015. The underlying etiology for this is unknown. Other supporting medical documentation is limited at this time. Over the past several weeks, the ijeoma has been complaining of increased generalized headaches, as well as intermittent nausea. He did have some generalized weakness but overall is tolerating the condition well. An MRI of the brain was done on June 24, 2016. Initially the patient's generalized weakness had been increasing. It does appear that his weakness has stabilized. Prior to admission he reportedly developed progressive difficulty in ambulating with muscles appearing to maya give out. Initial white blood cell counts were elevated in the 45,000 range with mostly lymphocytes seen. Platelets were mildly low at 118. I contacted, the patient is alert and oriented 3 supine in bed. He is in no acute distress. Patient still reports weakness of the upper and lower extremities on the left with intermittent but recurring upper extremity stiffness and spasticity. Objective - Vital Signs Vital signs: Vital Signs Temp 98.4 F 07/05/16 14:47 Pulse 63 07/05/16 14:47 Resp 16 07/05/16 14:47 BP 127/59 07/05/16 14:47 Pulse Ox 96 07/05/16 14:47 Intake & Output 07/05/16 07/05/16 07/06/16 06:59 18:59 06:59 Intake Total 940 450 Output Total 200 Balance 740 450 Intake: IV 450 Sodium Chloride 0.9% 1, 450 000 ml @ 75 mls/hr IV . [id number] ONE Rx#:[id number] Oral 940 Output: Urine 200 Other: # Voids 2 # Bowel Movements 1 - Exam General: The patient is awake and alert, in no distress HEENT: there is normal conjunctiva bilaterally, head has noted prior surgical scar in the right posterior region. Neck: The neck is supple, there is no JVD. Cardiovascular: Normal rate and rhythm Respiratory: no increased work of breathing Gastrointestinal: Abdomen is soft, nontender Musculoskeletal: There is no pedal edema. Skin: Skin is warm and dry - Neurologic Neurologic Comment(s): Cranial nerve II: Decreased peripheral visionleft eye Decreased visual acuity and depth perceptionleft eye Finger to nose reproducibledysmetria with the left hand. Cranial nerve III: Slight upper eyelid ptosis. cranial nerve IV: No deficits noted Cranial nerve V: No deficits noted Cranial nerve : No deficits noted Cranial nerve VII: Slight ptosis of the left upper eyelid Left upper lip droopvery slight Cranial nerve VIII: Decreased hearing acuity in the left ear versus right Cranial nerve IX and cranial nerve X: No deficits noted Cranial nerve XI: No deficits noted Cranial nerve XII: No deficits noted Sensory: Right facial = left facial Right upper extremity = left upper extremity Right lower extremity = left lower extremity No seizure-like activity noted on physical exam Speech and language were normal - Musculoskeletal Musculoskeletal Comment(s): generalized weakness, left side greater than right upper and lower extremities. Left-sided weakness especially noted with resistance to extension. - Psychiatric Psychiatric: Present: A&O x's 3, appropriate affect, intact judgment & insight ( MRI brachial plexus still pending) - Labs CBC & Chem 7: 07/05/16 07:51 07/05/16 07:51 Labs: Abnormal Lab Results - Last 24 Hours (Table) 07/05/16 07/05/16 Range/Units 07:51 07:51 WBC 28.0 H* (3.8-10.6) k/uL RBC 4.21 L (4.30-5.90) m/uL Hgb 12.1 L (13.0-17.5) gm/dL Hct 35.4 L (39.0-53.0) % Plt Count 102 L (150-450) k/uL Lymphocytes # (Manual) 24.9 H (1.0-4.8) k/uL Glucose 153 H (74-99) mg/dL AST 16 L (17-59) U/L Total Protein 5.7 L (6.3-8.2) g/dL Assessment and Plan (1) Generalized weakness Status: Acute (2) Intracranial space-occupying lesion on diagnostic imaging Status: Acute (3) Muscle weakness (generalized) Narrative/Plan: It is noted that the patient possibly has consistent/persistent recurrent tumor. Until the imaging can be compared, it is unknown if the patient's current status is related to an increase from his previous baseline. Although the patient does have a history of elevated CPK, his CPK level was noted as normal at 55. It is doubtful that the patient's current condition is related to a myopathy. If necessary patient can be followed outpatient for a muscle biopsy if it is learned that further diagnostic workup is necessary. On physical exam, the patient does have noted visual acuity decline on the left , depth perception decline in the left eye as well as left hearing decline. His sensory differences in the upper versus lower extremities have resolved over the past 24 hours. Decreased strength in the left side appears to have stabilized. (see PE notations) EEG is still pending Awaiting further documentation from previous [place] with further recommendations to follow. MRI cervical: Disc bulge C5-6 with moderate flattening. Some cord contact is present. Mild left paracentral disc bulge C4-5 without cord contact or stenosis. The cranial vertebral junction is normal. Vertebral body height alignment is normal. Multiple lymph nodes are identified within the bilateral neck. Consider additional workup of the lymphadenopathy. Patient does have various disc bulges, facet changes and other findings that can be followed up in outpatient and would not contribute to the weakness as noted in the patient' s upper extremity. Based on Cervical MRI findings, I do recommend an oncology consult which was already pending. MRI lumbar spine: Facet hypertrophy L4-5 with posterior lateral thecal sac compression. No stenosis is present. No abnormal enhancement. Cord terminates at L1-L2 level. Disc desiccation is present L5-S1. The remaining discs heights are preserved. Remaining disc hydration levels appear preserved. Patient does have complaints on exam consistent with facet etiology. However these complaints would not appear to be contributory to the significant left lower extremity weakness. MRI findings as noted in the lumbar region can be followed up on an outpatient basis. MRI brachial plexus: Still pending Continue with current medication regime. Recommend PT and OT evaluation/consult Continue with seizure and fall precautions Keppra level pending Continue neuro checks q4 hrs. Call with any questions or concerns Neurology will continue to follow. I discussed the patient's pertinent medical information with Dr. Santana. He agrees with the plan of care as implemented. Status: Acute
[2016-07-06] MEDS: ACETAMINOPHEN TAB 325 MG TAB PO PRN (03:11)
[2016-07-06] MEDS: levETIRAcetam 250 MG TAB PO SCH ×2 (07:42→22:15)
[2016-07-06] MEDS: NICOTINE 21MG/24HR PATCH TRANSDERM SCH (07:42)
[2016-07-06] MEDS: CLOPIDOGREL 75 MG TAB PO SCH (07:42)
[2016-07-06] MEDS: PANTOPRAZOLE 40 MG TABLET PO SCH (07:43)
[2016-07-06] MEDS: DOCUSATE 100 MG CAP PO SCH ×2 (07:43→22:15)
[2016-07-06] MEDS: DULoxetine HCL 60 MG CAPSULE.DR PO SCH (07:43)
[2016-07-06] MEDS: HEPARIN SODIUM,PORCINE 5,000 UNIT/ML 1 ML VIAL SQ SCH ×2 (07:43→22:15)
[2016-07-06] MEDS: NON-FORMULARY DRUG (Dextroamphetamine/Amphetamine [Adderall] 10 MG) PO SCH ×2 (09:08→17:29)
--- NOTE | 2016-07-06 10:46 | P.PN ---
Subjective Patient is scheduled for EEG today. Also MRI of the brain scheduled for today. No events overnight. Objective - Vital Signs Vital signs: Vital Signs Temp 97.9 F 07/06/16 07:00 Pulse 56 L 07/06/16 07:00 Resp 16 07/06/16 07:00 BP 105/58 07/06/16 07:00 Pulse Ox 92 L 07/06/16 07:00 Intake & Output 07/05/16 07/06/16 07/06/16 18:59 06:59 18:59 Intake Total 450 480 Balance 450 480 Intake: IV 450 240 .9@20 240 Sodium Chloride 0.9% 1, 450 000 ml @ 75 mls/hr IV . [id number] ONE Rx#:[id number] Oral 240 Other: Voiding Method Toilet Toilet # Voids 1 - Exam General: The patient is awake and alert, in no distress Eye: there is normal conjunctiva bilaterally. Neck: The neck is supple, there is no JVD. Cardiovascular: Normal S1-S2, no S3-S4, no murmurs. Respiratory: Lungs clear to auscultation bilaterally Gastrointestinal: Abdomen is soft, nontender Musculoskeletal: There is no pedal edema. Neurological:. Speech is normal. Skin: Skin is warm and dry - Labs CBC & Chem 7: 07/05/16 07:51 07/05/16 07:51 Assessment and Plan Plan: #1 generalized weakness and fatigue, multifactorial, could be related to underlying malignancy. thyroid function is normal, no evidence of any acute infection at this time will follow closely. #2 history of primary glioma of the brain status post chemo and radiation therapy in the past: Oncology following. Concerns about recurrence of his disease. MRI pending #3 underlying CLL with chronic leukocytosis #4 previous history of DVT in the right lower extremity with IV filter placement #5 history of coronary artery disease with stent placement #6 constipation: started Colace 100 milligrams twice a day Patient was seen and evaluated by oncology and neurology. Appreciate security consultant recommendations. MRI of the lumbar spine showed degenerative disc disease with facet hypertrophy at L4/L5 with posterior lateral thecal sac compression. Multilevel degenerative disc disease and disc bulging involving the cervical spine on MRI as well.
--- NOTE | 2016-07-06 13:32 | P.CNOR ---
[facility] of Present Illness - [facility] Consult date: 07/06/16 Requesting physician: Cristina Griffin Consult reason: other (Left upper extremity and lower extremity weakness) History of present illness: Patient is a very pleasant 55-year-old male who is seen and examined bedside for further evaluation after we were consulted for increased left-sided weakness. MRIs of the cervical spine and lumbar spine were performed. Patient is known to have had a brain tumor diagnosed in April 2014. He underwent a large right-sided parietal tumor resection and was treated with chemotherapy and radiation. He states during the mapping process of his brain surgery a nerve was hit and he has had some left-sided weakness ever since that surgical procedure. He feels lately his left-sided weakness has been worsening. He states he does have some pain in the left shoulder and in the left bicep that has been chronic following a previous boxing injury. Patient recently had a brain MRI performed in [place] that showed a spot on his brain. He is currently scheduled to undergo another brain MRI today at approximately 3:45 PM for further evaluation and comparison to his previous film taken in [place]. Patient is also known to have CLL and had an elevated white blood count of 45, 000 on presentation. He is currently being seen by oncology. His hemoglobin and RBC count are within normal limits and he is not currently receiving treatment for CLL. His white blood count has reduced to 28 today. Patient does not feel his left side weakness is acute in nature just feels generally weaker. He does have difficulty with ambulating as he feels like his equilibrium has been off following his previous brain surgery. He is not currently complaining of upper extremity or lower extremity radiculopathy symptoms bilaterally. He is not currently complaining of cervical pain or lumbar pain. He is been seen and examined by neurology as well. Past Medical History Past Medical History: Cancer, Deep Vein Thrombosis (DVT), Hyperlipidemia, Memory Impairment, Myocardial Infarction ([place]), Osteoarthritis ([place]), Seizure Disorder Additional Past Medical History / Comment(s): brain cancer, leukemia Last Myocardial Infarction Date:: 2012 History of Any Multi-Drug Resistant Organisms: None Reported Past Surgical History: Cholecystectomy, Heart Catheterization With Stent Additional Past Surgical History / Comment(s): brain surgery x2, IVF filter, metaport, fatty tumor removals, left knee orthoscopic Past Anesthesia/Blood Transfusion Reactions: No Reported Reaction Date of Last Stent Placement:: 2010 Past Psychological History: Anxiety, Depression Smoking Status: Current every day smoker Past Alcohol Use History: None Reported Past Drug Use History: None Reported - Past Family History Mother Family Medical History: Chest Pain / Angina, Diabetes Mellitus Father History Unknown: Yes Medications and Allergies Home Medications Medication Instructions Recorded Confirmed Type Clopidogrel [Plavix] 75 mg PO DAILY 07/02/16 07/02/16 History DULoxetine HCL [Cymbalta] 60 mg PO DAILY 07/02/16 07/02/16 History Dextroamphetamine/Amphetamine 10 mg PO BID 07/02/16 07/02/16 History [Adderall] Ondansetron Odt [Zofran ODT] 4 mg PO Q6H PRN 07/02/16 07/02/16 History Pantoprazole Sodium 40 mg PO DAILY 07/02/16 07/02/16 History levETIRAcetam [Keppra] 1,250 mg PO BID 07/02/16 07/02/16 History oxyCODONE HCL 30 mg PO Q6H PRN 07/02/16 07/02/16 History traZODone HCL 200 mg PO HS 07/02/16 07/02/16 History Allergies Allergy/AdvReac Type Severity Reaction Status Date / Time No Known Allergies Allergy Verified 07/02/16 08:51 Physical Examination Physical exam: Patient is awake, alert, and oriented 3; he does have some mild difficulty with memory Vital signs stable Good chest excursion with deep inspiration and expiration Abdomen soft nontender Evidence of a well healed incision on the top right parietal portion of the skull Examination of the cervical spine reveals skin is intact with no abrasions, lacerations, or bruises; no erythema, purulence or signs of infection Full range of motion of the cervical spine with adequate flexion, extension, and bilateral rotation Well Puller strength, thumb strength, interosseous strength, biceps strength, triceps strength, and shoulder strength positive sustained bilaterally Some evidence of generalized left upper extremity weakness not significantly less than the right Mulligan's sign negative upper extremity bilaterally Dorsiflexion, plantarflexion, and extensor hallucis longus positive sustained bilaterally Lower extremity strength 5/5 bilaterally Patellar reflex 2+ bilaterally No lower extremity hyperreflexia bilaterally Straight leg test negative bilateral lower extremities No signs or symptoms of DVT; no calf pain No pain with internal and external rotation of the hips bilaterally Neurovascularly intact Results Pertinent studies: MRI of the cervical spine and lumbar spine: C5-6 mild degenerative disc disease and disc bulging with moderate flattening and some cord contact present; C4-5 mild left paracentral disc bulge without cord contact or stenosis; no evidence of abnormal enhancement; overall alignment appears to be adequately maintained; no evidence of significant central canal stenosis of the cervical spine; L4-5 facet hypertrophy with posterior lateral thecal sac compression with no evidence of stenosis; L5-S1 disc desiccation; overall alignment appears to be adequate maintained; no evidence of abnormal enhancement; no evidence of significant disc herniation or central canal stenosis of the lumbar spine - Labs Labs: H & H 07/04/16 07/05/16 Range/Units 08:48 07:51 Hgb 13.3 12.1 L (13.0-17.5) gm/dL Hct 40.6 35.4 L (39.0-53.0) % Result Diagrams: 07/05/16 07:51 07/05/16 07:51 Assessment and Plan (1) Weakness of left upper extremity Status: Acute (2) Weakness of left lower extremity Status: Acute (3) Degenerative disc disease, cervical Status: Acute (4) Lumbar facet arthropathy Status: Acute (5) Hx of brain surgery Status: Acute (6) CLL (chronic lymphocytic leukemia) Status: Acute (7) Intracranial space-occupying lesion on diagnostic imaging Status: Acute Plan: Assessment: Left upper extremity weakness Left lower extremity weakness C5-6 mild degenerative disc disease and disc bulging L4-5 facet hypertrophy History of brain tumor with right parietal resection CLL Plan: 1. Following further evaluation of the patient, further discussion with the patient, and reviewing of his imaging, where not currently planning any acute surgical intervention in regards to his cervical or lumbar spine. Patient does have some ongoing left-sided upper and lower extremity weakness that has been ongoing following his previous brain surgery. He also feels some unsteadiness in his gait specifically with the left lower extremity. It does not appear his symptoms are significantly stemming from his cervical spine or lumbar spine. He does not have evidence of a significant disc herniation or central canal stenosis of the cervical spine or lumbar spine that would be the cause of his current symptoms. He is not currently experiencing upper extremity or lower extremity radiculopathy bilaterally. He is not currently complaining of cervical pain and lumbar pain. I discussed with the patient in detail we'll continue with conservative treatment in regards to his cervical spine and lumbar spine. We discussed he undergo further treatment and evaluation in regards to his brain and CLL. At this time he will be cleared for discharge from an orthopedic spine standpoint and may follow-up on an as-needed basis. Patient feels this is a good plan of care. 2. Medicine, oncology, and neurology to continue following the patient 3. From an orthopedic spine standpoint, patient is now clear for discharge once cleared by medicine, oncology, and neurology 4. Following discharge, patient may follow-up with Melvin Castillo PA-C or Dr. Saeid Victor at [facility] on as-needed basis 5. I have discussed this patient in detail with Dr. Saeid Victor and he agrees with this plan Time with Patient: Greater than 30
[2016-07-06] MEDS ORDERED: DIAZEPAM 5 MG TAB PO STA (15:36)
--- NOTE | 2016-07-06 17:39 | MR ---
EXAMINATION TYPE: MR brachial plexus LT wo/w con DATE OF EXAM: 07/06/2016 5:12 PM COMPARISON: NONE HISTORY: Sensory and motor deficits, LUE since brain surgery, Motion on images, patient medicated for claustrophobia CONTRAST: Standard multiplanar, multisequence MRI departmental protocol utilizing 20 mL intravenous MultiHance gadolinium contrast. FINDINGS: There is some superficial metal-type artifact on the left upper anterior chest wall that co uld relate to a previous pacemaker. Exam is limited somewhat by motion artifact. There is extensive adenopathy demonstrated in the axillary region as well as the supraclavicular and anterior triangle of the neck. There is similar adenopathy on the right side as well. Lymph nodes in the anterior triangle measure up to 2 cm. Lymph nodes in the axilla measure 3 cm. The supraclavicular lymph nodes measure up to 2 cm. I see no definite mass involving the brachial plexus. There is some osteoarthritis in the shoulder joint. I see no pathologic enhancement. IMPRESSION: There is nonspecific extensive adenopathy demonstrated in the anterior triangle of the neck, supracla vicular and axillary regions. No evidence of brachial plexus mass. CT scan of the neck and chest woul d be helpful for further evaluation if clinically indicated.
[2016-07-06] MEDS: traZODone HCL 100 MG TAB PO SCH (22:15)
[2016-07-07] MEDS: levETIRAcetam 250 MG TAB PO SCH (07:50)
[2016-07-07] MEDS: NICOTINE 21MG/24HR PATCH TRANSDERM SCH (07:50)
[2016-07-07] MEDS: HEPARIN SODIUM,PORCINE 5,000 UNIT/ML 1 ML VIAL SQ SCH (07:50)
[2016-07-07] MEDS: PANTOPRAZOLE 40 MG TABLET PO SCH (07:50)
[2016-07-07] MEDS: DOCUSATE 100 MG CAP PO SCH (07:50)
[2016-07-07] MEDS: DULoxetine HCL 60 MG CAPSULE.DR PO SCH (07:50)
[2016-07-07] MEDS: CLOPIDOGREL 75 MG TAB PO SCH (07:51)
[2016-07-07 08:04] LABS: Anion Gap 10 mmol/L; Blood Urea Nitrogen 14 mg/dL (9-20); Calcium 8.7 mg/dL (8.4-10.2); Carbon Dioxide 28 mmol/L (22-30); Chloride 102 mmol/L (98-107); Glucose 76 mg/dL (74-99); Non-African American GFR(MDRD) >60 (>60 ml/min/1.73 sqM); Potassium 4.1 mmol/L (3.5-5.1); Sodium 140 mmol/L (137-145)
[2016-07-07 08:14] LABS: Aty Lym Flag Moderate; CH 28.8; CHCM 34.4; HDW 3.02; HGB 11.8 gm/dL (13.0-17.5); MCH 28.5 pg (25.0-35.0); MCHC 33.9 g/dL (31.0-37.0); MCV 84.2 fL (80.0-100.0); Mean Platelet Volume 6.8; RBC 4.16 m/uL (4.30-5.90); RDW 14.4 % (11.5-15.5); WBC 24.9 k/uL (3.8-10.6); WBC (Perox) 24.67
[2016-07-07 08:24] VITALS: BP 112/63; PULSE 50; RESP 16; TEMP 98
[2016-07-07] MEDS: NON-FORMULARY DRUG (Dextroamphetamine/Amphetamine [Adderall] 10 MG) PO SCH (09:43)
[2016-07-07 10:45] LABS: Add Differential Manual Differential
[2016-07-07 10:49] LABS: Band Neutrophils % 0.5 %; Nucleated Red Blood Cells 0 /100 WBC (0-0); Total Cells Counted 200
[2016-07-07 10:50] LABS: Manual Review Performed
--- NOTE | 2016-07-07 12:38 | XR ---
EXAMINATION TYPE: XR chest 1V DATE OF EXAM: 07/07/2016 12:30 PM HISTORY: Shortness of breath. COMPARISON: 07/02/2016 TECHNIQUE: Single view of the chest is submitted. FINDINGS: Left-sided Mediport catheter appears unchanged in position and course. Demonstrated are scattered senescent parenchymal change. There is no evidence for focal infiltrate. The heart is stable. Hilar and mediastinal structures are within normal limits. Degenerative changes are seen of the dorsal spine. IMPRESSION: 1. Chronic changes without evidence for acute pulmonary disease.
--- NOTE | 2016-07-07 13:16 | P.DS ---
Providers Date of admission: 07/02/16 12:28 Expected date of discharge: 07/07/16 Attending physician: Donn Pandya Consults: 07/03/16 12:05 Consult Physician Routine Consulting Provider: Dung Santana Consult Reason/Comments: muscle weakness Do you want consulting provider notified?: Already Contacted 07/06/16 10:46 Consult Physician Routine Consulting Provider: Maya Victor Consult Reason/Comments: Multilevel disc bulging with cecal sac compression Do you want consulting provider notified?: Yes Primary care physician: Bisi [facility] Hospital Course: This is a 55-year-old gentleman with complicated past medical history noted below who presented to the hospital with generalized weakness and fatigue. Patient was seen and evaluated by multiple specialists including neurology, oncology, and spine surgery. His clinical condition remained stable throughout his hospital stay. Below is a history of his medical problems addressed during this hospitalization #1 generalized weakness and fatigue, multifactorial, could be related to underlying malignancy. thyroid function is normal, no evidence of any acute infection at this time will follow closely. Improved throughout his hospital stay. 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 Concerns about recurrence of his disease. MRI done at an outside hospital pending record. Patient will follow- up with oncology tomorrow in the office. #3 underlying CLL with chronic leukocytosis #4 previous history of DVT in the right lower extremity with IV filter placement #5 history of coronary artery disease with stent placement #6 constipation: started Colace 100 milligrams twice a day Patient was seen and evaluated by oncology and neurology. MRI of the lumbar spine showed degenerative disc disease with facet hypertrophy at L4/L5 with posterior lateral thecal sac compression. Multilevel degenerative disc disease and disc bulging involving the cervical spine on MRI as well. He was seen by Dr. Fuller and plan is to follow-up in the office. Patient also underwent an MRI Of the left brachial plexus that showed no mass effect. Diffuse lymphadenopathy noted in the neck. The patient will follow-up for further imaging with oncology in the office. His is now in the process of getting his last MRI from [place] as well. Patient will be discharged home in a stable condition. Plan - Discharge Summary New Discharge Prescriptions: Docusate [Colace] 100 mg PO BID #60 cap Discharge Medication List Clopidogrel [Plavix] 75 mg PO DAILY 07/02/16 [History] DULoxetine HCL [Cymbalta] 60 mg PO DAILY 07/02/16 [History] Dextroamphetamine/Amphetamine [Adderall] 10 mg PO BID 07/02/16 [History] Ondansetron Odt [Zofran ODT] 4 mg PO Q6H PRN 07/02/16 [History] Pantoprazole Sodium 40 mg PO DAILY 07/02/16 [History] levETIRAcetam [Keppra] 1,250 mg PO BID 07/02/16 [History] oxyCODONE HCL 30 mg PO Q6H PRN 07/02/16 [History] traZODone HCL 200 mg PO HS 07/02/16 [History] Docusate [Colace] 100 mg PO BID #60 cap 07/07/16 [Rx] Follow up Appointment(s)/Referral(s): Melvin Castillo PAC [PHYSICIAN CAKE DECORATOR] - As Needed (Patient may follow-up with Melvin Castillo PA-C or Dr. Saeid Victor at [facility] in on an as-needed basis following discharge. ) Bisi Jennings DO [Primary Care Provider] - 3 Days Luciano Montano MD [STAFF PHYSICIAN] - 3 Days Discharge Disposition: HOME WITH HOME HEALTH SERVICES
--- NOTE | 2016-07-13 11:26 | EEG ---
DATE OF SERVICE: 07/06/2016 REASON FOR TESTING: Altered mental status and headache. The patient also has history of seizures. AGE: 55Y CURRENT ANTIEPILEPTIC MEDICATIONS: Keppra. DESCRIPTION OF THE PROCEDURE: This EEG was performed using a 21-channel digital electroencephalograph, following the international 10 - 20 system. DESCRIPTION OF THE RECORDING: From the beginning of the tracing, and with the patient's eyes closed, the background rhythm was mostly consisting of 8 Hz alpha frequency in the posterior occipital leads. Mild asymmetry is noticed with slightly increased amplitude in the right parietal region compared to the left. Photic stimulation was performed with no driving response seen. No pathological waves were elicited. Hyperventilation was not performed. The patient remains awake throughout the tracing. No epileptiform discharges were seen. His EKG lead showed a bradycardic rate with a normal rhythm. INTERPRETATION: This awake EEG can be considered within normal limits except for slight asymmetry as mentioned above. No epileptiform discharges were seen. The absence of epileptiform discharges does not rule out the diagnosis of epilepsy, therefore clinical correlation is recommended.
== END 2016-07-07 14:25 | disposition home health service (06) | DRG 55 ==
LOC: EC 08:36 → 5ONC 12:28
PROVIDERS: ADMIT Internal Medicine; ATTEND Internal Medicine
DX: C71.9 Malignant neoplasm of brain, unspecified (principal); C91.10 Chronic lymphocytic leukemia of B-cell type not having achieved remission; D69.6 Thrombocytopenia, unspecified; G40.909 Epilepsy, unspecified, not intractable, without status epilepticus; I25.10 Atherosclerotic heart disease of native coronary artery without angina pectoris; M46.96 Unspecified inflammatory spondylopathy, lumbar region; H02.402 Unspecified ptosis of left eyelid; H91.92 Unspecified hearing loss, left ear; H54.62 Unqualified visual loss, left eye, normal vision right eye; M79.622 Pain in left upper arm; E78.5 Hyperlipidemia, unspecified; I25.2 Old myocardial infarction; M50.321 Other cervical disc degeneration at C4-C5 level; M51.36 Other intervertebral disc degeneration, lumbar region; M62.81 Muscle weakness (generalized); R59.0 Localized enlarged lymph nodes; K59.00 Constipation, unspecified; R51 Headache; R11.0 Nausea; R26.2 Difficulty in walking, not elsewhere classified; M25.512 Pain in left shoulder; F32.9 Major depressive disorder, single episode, unspecified; F41.9 Anxiety disorder, unspecified; M19.90 Unspecified osteoarthritis, unspecified site; F40.240 Claustrophobia; F17.200 Nicotine dependence, unspecified, uncomplicated; Z79.02 Long term (current) use of antithrombotics/antiplatelets; Z79.891 Long term (current) use of opiate analgesic; Z79.899 Other long term (current) drug therapy; Z95.828 Presence of other vascular implants and grafts; Z95.5 Presence of coronary angioplasty implant and graft; Z92.21 Personal history of antineoplastic chemotherapy; Z92.3 Personal history of irradiation; Z83.3 Family history of diabetes mellitus; Z86.718 Personal history of other venous thrombosis and embolism; Z90.49 Acquired absence of other specified parts of digestive tract; Z82.49 Family history of ischemic heart disease and other diseases of the circulatory system; Z87.828 Personal history of other (healed) physical injury and trauma
CPT/HCPCS: 36415; 70450; 71010; 71020; 71552; 72156; 72158; 80048; 80053; 80177; 81003; 82085; 82150; 82550; 82553; 83690; 83735; 84443; 84481; 84484; 85025; 85610; 85652; 85730; 93005; 95816; 96360; 96361; 96374; 96375; 96376; 99285

== ENCOUNTER 2016-07-30 19:01 | Inpatient (IN) | payer MEDICARE ==
[2016-07-30] MEDS ORDERED: PANTOPRAZOLE 40 MG/10 ML VIAL IVP STA (20:38)
[2016-07-30] MEDS ORDERED: METOCLOPRAMIDE 5 MG/ML 2 ML VIAL IVP STA (20:38)
[2016-07-30] MEDS ORDERED: HYDROmorphone 1 MG/ML 1 ML SYRINGE IVP STA ×2 (20:38→22:24)
[2016-07-30] MEDS ORDERED: SODIUM CHLORIDE 0.9% 1,000 ML IV STA (20:38)
--- NOTE | 2016-07-30 20:47 | ED ---
General Adult HPI - General Chief complaint: Nausea/Vomiting/Diarrhea Stated complaint: vomiting-cancer Time Seen by Provider: 07/30/16 19:49 Source: patient, family, RN notes reviewed Mode of arrival: wheelchair Limitations: no limitations - History of Present Illness Initial comments: Chief complaint and history of present illness a 55-year-old male with a history of brain cancer first diagnosed in 2010 treated with surgery and chemotherapy and recurrent 2013. The patient takes medications for seizures. This past July he had an MRI reports unavailable at this time radiologist awaiting previous MRI done to determine if patient has a recurrence of his brain cancer. Patient complains of severe headache nausea vomiting. No stiff neck. - Related Data Home Medications Medication Instructions Recorded Confirmed Clopidogrel [Plavix] 75 mg PO DAILY 07/02/16 07/30/16 DULoxetine HCL [Cymbalta] 60 mg PO DAILY 07/02/16 07/30/16 Dextroamphetamine/Amphetamine 10 mg PO BID 07/02/16 07/30/16 [Adderall] Ondansetron Odt [Zofran ODT] 4 mg PO Q6H PRN 07/02/16 07/30/16 Pantoprazole Sodium 40 mg PO DAILY 07/02/16 07/30/16 levETIRAcetam [Keppra] 1,250 mg PO BID 07/02/16 07/30/16 oxyCODONE HCL 30 mg PO Q6H PRN 07/02/16 07/30/16 traZODone HCL 200 mg PO HS 07/02/16 07/30/16 Acetaminophen [Tylenol Arthritis] 1,300 mg PO Q6H PRN 07/30/16 07/30/16 Escitalopram [Lexapro] 20 mg PO DAILY 07/30/16 07/30/16 Gabapentin [Neurontin] 300 mg PO HS 07/30/16 07/30/16 Previous Rx's Medication Instructions Recorded Docusate [Colace] 100 mg PO BID #60 cap 07/07/16 Allergies Allergy/AdvReac Type Severity Reaction Status Date / Time midazolam [From Versed] Allergy Unknown Verified 07/30/16 20:06 Review of Systems ROS Statement: Those systems with pertinent positive or pertinent negative responses have been documented in the HPI. Review of systems headache. No significant change in visual acuity. Nausea vomiting. No stiff neck. No chest pain shortness of breath or genitourinary problems neurologically unchanged. All systems are reviewed. Past medical processing significant for brain cancer first diagnosed 5 years ago treated twice for recurrence. He has a history of DVT for which she is taking Plavix and also has a filter. History of hyperlipidemia memory impairment previous [place] osteoarthritis brain cancer as well as chronic lymphocytic leukemia. Surgeries include a cholecystectomy, 3 cardiac stents brain surgery twice for chemotherapy. Family history no cancer patient does smoke he denies alcohol use. ROS Other: All systems not noted in ROS Statement are negative. Past Medical History Past Medical History: Cancer, Deep Vein Thrombosis (DVT), Hyperlipidemia, Memory Impairment, Myocardial Infarction ([place]), Osteoarthritis (OA), Seizure Disorder Additional Past Medical History / Comment(s): brain cancer, leukemia Last Myocardial Infarction Date:: 2012 History of Any Multi-Drug Resistant Organisms: None Reported Past Surgical History: Cholecystectomy, Heart Catheterization With Stent Additional Past Surgical History / Comment(s): brain surgery x2, IVF filter, metaport, fatty tumor removals, left knee orthoscopic Past Anesthesia/Blood Transfusion Reactions: No Reported Reaction Date of Last Stent Placement:: 2010 Past Psychological History: Anxiety, Depression Smoking Status: Current every day smoker Past Alcohol Use History: None Reported Past Drug Use History: None Reported - Past Family History Mother Family Medical History: Chest Pain / Angina, Diabetes Mellitus Father History Unknown: Yes General Exam - General Exam Comments Initial Comments: General: The patient is awake and alert, complaining of headache nausea vomiting. Vital signs temp 97.9 pulse 84 story rate 18 pulse ox 93% on room air. Blood pressure 115/78. Eye: Pupils are equal, round and reactive to light, extra-ocular movements are intact ; there is normal conjunctiva bilaterally. No signs of icterus. Ears, nose, mouth and throat: There are moist mucous membranes and no oral lesions. Neck: The neck is supple, there is no tenderness. Cardiovascular: There is a regular rate and rhythm. No murmur, rub or gallop is appreciated. Respiratory: Lungs are clear to auscultation, respirations are non-labored, breath sounds are equal. No wheezes, stridor, rales, or rhonchi. Gastrointestinal: Nausea vomiting. Back: There is no tenderness to palpation in the midline. There is no obvious deformity. No rashes noted. Neurological: No new deficits since last surgery per patient and . Skin: Skin is warm and dry and no rashes or lesions are noted. Limitations: no limitations Course Vital Signs 07/30/16 07/30/16 07/30/16 19:21 20:23 22:09 Temperature 97.9 F Pulse Rate 84 76 71 Respiratory 18 16 16 Rate Blood Pressure 115/78 131/74 142/77 O2 Sat by Pulse 93 L 97 97 Oximetry 07/30/16 23:50 Temperature Pulse Rate 93 Respiratory 16 Rate Blood Pressure 145/78 O2 Sat by Pulse 95 Oximetry Medical Decision Making - Medical Decision Making Medical decision making; patient's white count is 52.6 he does have CLL, hemoglobin 13.8 hematocrit 41.2, potassium 4.6 BUN 16 creatinine 0.9 with a GFR greater than 60. Glucose 128. Amylase lipase within normal limits. The patient's vomiting isn't controlled with medications he still has a headache. CT of the brain was done and reviewed by radiologist's his final impression is; there is right parietal craniotomy defect. There is patchy hypodensity in the periventricular white matter. There is no mass effect or midline shift. There is no sign of intracranial hemorrhage. There is focal parenchymal calcification in the right posterior parietal lobe. Impression; cerebral atrophy and chronic small vessel ischemia. Right parietal postsurgical changes. No acute abnormality. No change compared to old exam. As read by Dr. Hatch The patient be admitted for pain management for headache. He does not want to continue therapy for recurrent brain cancer if that is what found to be causing his headaches. He stated this in front of his who reiterated his wishes. The case discussed with Dr. Pandya, patient be admitted his practice. The patient will receive Decadron and pain medication and medication for nausea. - Lab Data Result diagrams: 07/30/16 21:03 07/30/16 21:03 Lab Results 07/30/16 07/30/16 Range/Units 21:03 21:03 WBC 52.6 H* (3.8-10.6) k/uL RBC 4.98 (4.30-5.90) m/uL Hgb 13.8 (13.0-17.5) gm/dL Hct 41.2 (39.0-53.0) % MCV 82.8 (80.0-100.0) fL MCH 27.6 (25.0-35.0) pg MCHC 33.4 (31.0-37.0) g/dL RDW 14.1 (11.5-15.5) % Plt Count 121 L (150-450) k/uL Sodium 137 (137-145) mmol/L Potassium 4.6 (3.5-5.1) mmol/L Chloride 104 (98-107) mmol/L Carbon Dioxide 23 (22-30) mmol/L Anion Gap 10 mmol/L BUN 16 (9-20) mg/dL Creatinine 0.91 (0.66-1.25) mg/dL Est GFR (MDRD) Af Amer >60 (>60 ml/min/1.73 sqM) Est GFR (MDRD) Non-Af >60 (>60 ml/min/1.73 sqM) Glucose 128 H (74-99) mg/dL Calcium 8.2 L (8.4-10.2) mg/dL Total Bilirubin 1.0 (0.2-1.3) mg/dL AST 20 (17-59) U/L ALT 32 (21-72) U/L Alkaline Phosphatase 118 (38-126) U/L Total Protein 6.3 (6.3-8.2) g/dL Albumin 4.0 (3.5-5.0) g/dL Amylase <30 L (30-110) U/L Lipase 14 L (23-300) U/L Disposition Clinical Impression: Status migrainosus, History of brain cancer Disposition: ADMITTED IP TO THIS [facility] Condition: Stable
[2016-07-30 21:24] LABS: ALT 32 U/L (21-72); AST 20 U/L (17-59); Alkaline Phosphatase 118 U/L (38-126); Amylase <30 U/L (30-110); Anion Gap 10 mmol/L; Blood Urea Nitrogen 16 mg/dL (9-20); Calcium 8.2 mg/dL (8.4-10.2); Carbon Dioxide 23 mmol/L (22-30); Chloride 104 mmol/L (98-107); Glucose 128 mg/dL (74-99); Non-African American GFR(MDRD) >60 (>60 ml/min/1.73 sqM); Potassium 4.6 mmol/L (3.5-5.1); Sodium 137 mmol/L (137-145); Total Protein 6.3 g/dL (6.3-8.2)
[2016-07-30 21:27] LABS: Aty Lym Flag Slight; CH 28.8; HCT 41.2 % (39.0-53.0); HDW 3.06; HGB 13.8 gm/dL (13.0-17.5); MCH 27.6 pg (25.0-35.0); MCHC 33.4 g/dL (31.0-37.0); MCV 82.8 fL (80.0-100.0); Mean Platelet Volume 6.4; RBC 4.98 m/uL (4.30-5.90); RDW 14.1 % (11.5-15.5); WBC (Perox) 37.45
[2016-07-30 21:46] LABS: WBC 52.6 k/uL (3.8-10.6)
[2016-07-30 22:09] VITALS: RESP 16
[2016-07-30] MEDS ORDERED: DEXAMETHASONE SOD PHOSPHATE 4 MG/ML 1 ML VIAL IV STA (22:22)
--- NOTE | 2016-07-30 23:53 | CT ---
EXAMINATION TYPE: CT brain wo con DATE OF EXAM: 07/30/2016 11:24 PM COMPARISON: 07/02/2016 HISTORY: CHAMBERS, history of brain CA CT DLP: 1047.10 mGycm Automated exposure control for dose reduction was used. FINDINGS: There is right parietal craniotomy defect. There is patchy hypodensity in the periventricular white m atter. There is no mass effect or midline shift. There is no sign of intracranial hemorrhage. There i s focal parenchymal calcification in the right posterior parietal lobe. IMPRESSION: Cerebral atrophy and chronic small vessel ischemia. Right parietal postsurgical changes. No acute abn ormality. No change compared to old exam.
[2016-07-31 00:22] LABS: Add Differential Manual Differential
[2016-07-31 00:27] LABS: Nucleated Red Blood Cells 0 /100 WBC (0-0); Total Cells Counted 200
[2016-07-31 00:28] LABS: Polychromasia Present
[2016-07-31] MEDS ORDERED: ONDANSETRON 4 MG/2 ML VIAL IVP PRN (00:51)
[2016-07-31] MEDS ORDERED: NALOXONE 0.4 MG/ML 1 ML VIAL IV PRN (00:51)
[2016-07-31 01:43] VITALS: BMI 32.1
[2016-07-31] MEDS: HYDROmorphone 1 MG/ML 1 ML SYRINGE IV PRN ×4 (01:54→21:25)
[2016-07-31] MEDS: SODIUM CHLORIDE 0.9% 1,000 ML IV SCH ×2 (01:57→14:16)
[2016-07-31] MEDS: levETIRAcetam 500 MG TAB PO SCH ×2 (07:33→22:42)
[2016-07-31] MEDS: DOCUSATE 100 MG CAP PO SCH ×2 (07:35→22:42)
[2016-07-31] MEDS: ESCITALOPRAM 20 MG TAB PO SCH (07:35)
[2016-07-31] MEDS: DULoxetine HCL 60 MG CAPSULE.DR PO SCH (07:35)
[2016-07-31] MEDS: CLOPIDOGREL 75 MG TAB PO SCH (08:28)
[2016-07-31] MEDS ORDERED: PANTOPRAZOLE 40 MG/10 ML VIAL IV SCH (09:00)
[2016-07-31] MEDS ORDERED: NON-FORMULARY DRUG (Dextroamphetamine/Amphetamine [Adderall] 10 MG) PO SCH (09:00)
[2016-07-31] MEDS ORDERED: ONDANSETRON ODT 4 MG TAB PO PRN (11:30)
[2016-07-31] MEDS ORDERED: ACETAMINOPHEN TAB 500 MG TAB PO PRN (11:30)
--- NOTE | 2016-07-31 11:30 | P.HPIM ---
History of Present Illness H&P Date: 07/31/16 Chief Complaint: Nausea vomiting intractable headache 55-year-old gentleman who presented on the day of admission to the emergency room with a chief complaint of developing nausea vomiting diarrhea with persistent headache. . Patient gives a history of having brain cancer diagnosed in 2010 treated with surgery and chemotherapy with a reoccurrence in 2013. Patient has poor past medical history recall. No family at the bedside. Health history is been obtained by interviewing nursing staff the patient as well as prior computerized records. It was noted on July 03 patient was admitted with generalized weakness. Was seen by Dr. Stevenson at that time. Patient reportedly has been seen by hematology oncology Dr. oshea to establish care was seen on 06/14/2016. Patient states that he lived in [place] when he was first diagnosed with brain cancer. He stated he was seen for a chief complaint of headache at that time and was found to have a large right-sided parietal tumor which appeared to be consistent with a primary glioma noted on MRI. Additionally patient has a long -standing history of CLL which is been followed without any need for treatment so far patient was recently hospitalized last on July 03 at that time the patient was seen and worked up for generalized weakness that hospitalization the hospitalization patient was treated for generalized weakness felt to be multifactorial was seen by oncology as well as orthopedic dr duarte. The recommendations after being discharged on July 07 to follow-up in the outpatient setting. Patient stated after being discharged had been doing okay except he developed nausea vomiting and diarrhea which he attributes to his generalized weakness states he continues to have persistent headache at home and had been using his pain medication but was not getting any pain relief an MRI in June 24 was done reviewing the report indicates there was a slight interval increase in conspicuity of enhancement in the medial aspect of the right parietal lobe with postop changes Review of Systems Essentially unremarkable except as mentioned in the present illness Past Medical History Past Medical History: Cancer, Deep Vein Thrombosis (DVT), Hyperlipidemia, Memory Impairment, Myocardial Infarction ([place]), Osteoarthritis (OA), Seizure Disorder Additional Past Medical History / Comment(s): brain cancer, leukemia Last Myocardial Infarction Date:: 2012 History of Any Multi-Drug Resistant Organisms: None Reported Past Surgical History: Cholecystectomy, Heart Catheterization With Stent Additional Past Surgical History / Comment(s): brain surgery x2, IVF filter, metaport, fatty tumor removals, left knee orthoscopic Past Anesthesia/Blood Transfusion Reactions: No Reported Reaction Date of Last Stent Placement:: 2010 Past Psychological History: Anxiety, Depression Smoking Status: Current every day smoker Past Alcohol Use History: None Reported Past Drug Use History: None Reported - Past Family History Mother Family Medical History: Chest Pain / Angina, Diabetes Mellitus Father History Unknown: Yes Medications and Allergies Home Medications Medication Instructions Recorded Confirmed Type Clopidogrel [Plavix] 75 mg PO DAILY 07/02/16 07/30/16 History DULoxetine HCL [Cymbalta] 60 mg PO DAILY 07/02/16 07/30/16 History Dextroamphetamine/Amphetamine 10 mg PO BID 07/02/16 07/30/16 History [Adderall] Ondansetron Odt [Zofran ODT] 4 mg PO Q6H PRN 07/02/16 07/30/16 History Pantoprazole Sodium 40 mg PO DAILY 07/02/16 07/30/16 History levETIRAcetam [Keppra] 1,250 mg PO BID 07/02/16 07/30/16 History oxyCODONE HCL 30 mg PO Q6H PRN 07/02/16 07/30/16 History traZODone HCL 200 mg PO HS 07/02/16 07/30/16 History Acetaminophen [Tylenol Arthritis] 1,300 mg PO Q6H PRN 07/30/16 07/30/16 History Escitalopram [Lexapro] 20 mg PO DAILY 07/30/16 07/30/16 History Gabapentin [Neurontin] 300 mg PO HS 07/30/16 07/30/16 History Allergies Allergy/AdvReac Type Severity Reaction Status Date / Time midazolam [From Versed] Allergy Unknown Verified 07/30/16 20:06 Physical Exam Vitals: Vital Signs Temp Pulse Pulse Resp BP BP Pulse Ox 07/31/16 07:41 16 07/31/16 07:00 98 F 68 16 124/77 94 L 07/31/16 01:47 98.6 F 78 16 139/80 93 L 07/31/16 01:00 97.9 F 77 16 136/72 95 Intake and Output 07/30/16 07/31/16 07/31/16 22:59 06:59 14:59 Intake Total 320 Balance 320 Intake: IV 320 Sodium Chloride 0.9% 1, 320 000 ml @ 80 mls/hr IV . [id number] [facility] Rx#:[id number] Other: Voiding Method Urinal Urinal Weight 107.5 kg GENERAL APPEARANCE: 55-year-old male patient is alert, oriented, in no acute distress. VITAL SIGNS: Reviewed HEENT: Head is normocephalic and atraumatic. Pupils are equal and reactive. The nares are patent. Oropharynx is clear without lesions. NECK: Supple without lymphadenopathy. Traches midline. HEART: S1, S2. Regular rate and rhythm. No murmur noted denying chest pain LUNGS: No crackles or wheezes are heard. On room air sats 95% ABDOMEN: Soft, nontender, nondistended with good bowel sounds. No peritoneal signs. No palpable organomegaly or masses. EXTREMITIES: Normal skin color and turgor. No cyanosis, rash, ulceration, clubbing or edema. Radial pedal pulses are 2/4 bilaterall Results CBC & Chem 7: 07/30/16 21:03 07/30/16 21:03 Thrombosis Risk Factor Assmnt - Choose All That Apply Any of the Below Risk Factors Present?: Yes Each Factor Represents 1 point: Age 41-60 years, Obesity (BMI >25) Other Risk Factors: Yes Each Risk Factor Represents 3 Points: History of DVT/PE Other congenital or acquired thrombophilia - If yes, enter type in comment: No Thrombosis Risk Factor Assessment Total Risk Factor Score: 5 Thrombosis Risk Factor Assessment Level: High Risk Assessment and Plan Plan: Impression Present on admission intractable nausea vomiting diarrhea generalized weakness unclear etiology could be related to CCL and previous treatment for brain cancer Known history of brain tumor with chemotherapy and radiation and surgical intervention Known coronary artery occlusive disease with prior coronary stenting History of a DVT in the right lower extremity with IVC filter History of CLL with leukocytosis History of a seizure disorder on Keppra History migraine headaches Plan Pain control Resume home meds as appropriate Consult oncology hematology DVT and GI prophylaxis Fall precautions PT OT Further recommendations pending will follow Repeat labs in the morning The above dictated assessment and findings were discussed with Dr. aY Christopher and the plan of care have been dictated as directed. Aniyah Walker nurse practitioner acting as a scribe for dr genao
[2016-07-31] MEDS: PANTOPRAZOLE 40 MG TABLET PO SCH (12:09)
[2016-07-31] MEDS ORDERED: GABAPENTIN 300 MG CAP PO SCH (21:00)
[2016-07-31] MEDS ORDERED: traZODone HCL 100 MG TAB PO SCH (21:00)
[2016-08-01] MEDS: HYDROmorphone 1 MG/ML 1 ML SYRINGE IV PRN (02:40)
[2016-08-01] MEDS: SODIUM CHLORIDE 0.9% 1,000 ML IV SCH ×2 (05:18→12:08)
[2016-08-01 06:06] LABS: Aty Lym Flag Moderate; CH 28.7; CHCM 34.1; HCT 35.9 % (39.0-53.0); HDW 3.05; HGB 12.1 gm/dL (13.0-17.5); MCH 28.6 pg (25.0-35.0); MCHC 33.8 g/dL (31.0-37.0); MCV 84.5 fL (80.0-100.0); Mean Platelet Volume 6.7; RBC 4.25 m/uL (4.30-5.90); RDW 14.4 % (11.5-15.5); WBC (Perox) 39.34
[2016-08-01 06:08] LABS: WBC 38.4 k/uL (3.8-10.6)
[2016-08-01 06:22] LABS: ALT 31 U/L (21-72); AST 14 U/L (17-59); Alkaline Phosphatase 85 U/L (38-126); Anion Gap 8 mmol/L; Blood Urea Nitrogen 19 mg/dL (9-20); Calcium 8.4 mg/dL (8.4-10.2); Carbon Dioxide 26 mmol/L (22-30); Chloride 103 mmol/L (98-107); Glucose 132 mg/dL (74-99); Non-African American GFR(MDRD) >60 (>60 ml/min/1.73 sqM); Potassium 4.1 mmol/L (3.5-5.1); Sodium 137 mmol/L (137-145); Total Bilirubin 0.8 mg/dL (0.2-1.3); Total Protein 5.7 g/dL (6.3-8.2)
[2016-08-01 06:24] LABS: Add Differential Manual Differential
[2016-08-01 06:26] LABS: Manual Review Performed; Nucleated Red Blood Cells 0 /100 WBC (0-0); Total Cells Counted 100
[2016-08-01] MEDS: PANTOPRAZOLE 40 MG TABLET PO SCH (07:49)
[2016-08-01] MEDS: DOCUSATE 100 MG CAP PO SCH (07:49)
[2016-08-01] MEDS: CLOPIDOGREL 75 MG TAB PO SCH (07:49)
[2016-08-01] MEDS: DULoxetine HCL 60 MG CAPSULE.DR PO SCH (07:49)
[2016-08-01] MEDS: levETIRAcetam 500 MG TAB PO SCH (07:50)
[2016-08-01] MEDS: ESCITALOPRAM 20 MG TAB PO SCH (07:50)
[2016-08-01 08:58] VITALS: BP 93/60; PULSE 51; TEMP 98.6
[2016-08-01] MEDS ORDERED: ADDERALL 10 MG PO SCH (09:00)
--- NOTE | 2016-08-01 11:06 | P.DS ---
Providers Date of admission: 07/31/16 00:50 Expected date of discharge: 08/01/16 Attending physician: Donn Pandya Consults: 07/31/16 11:15 Consult Physician Urgent Consulting Provider: Price Stevenson Consult Reason/Comments: History of brain tumor and leukemia Do you want consulting provider notified?: Yes Primary care physician: [facility] Course: Discharge diagnosis 1. Intractable nausea, vomiting and diarrhea with generalized weakness. Possibly related to CLL and previous treatment of brain cancer 2. Brain tumor with chemotherapy and radiation with previous surgical intervention 3. History of coronary artery disease with preserved cardiac stenting 4. History of CLL 5. History of migraine headaches. Headaches have improved with pain medication Hospital course 55-year-old gentleman who presented on the day of admission to the emergency room with a chief complaint of developing nausea vomiting diarrhea with persistent headache. . Patient gives a history of having brain cancer diagnosed in 2010 treated with surgery and chemotherapy with a reoccurrence in 2013. Computed tomography scan of the brain showed cerebral atrophy and chronic small vessel ischemia. Right parietal postsurgical changes. No acute abnormality. Patient did receive Zofran and IV fluids. Symptoms have improved. He is tolerating a regular diet. Headaches are controlled with pain medication. Patient is eager for discharge home. He was seen by oncology. They're recommending MRI of the brain as outpatient. He is scheduled with Dr. Charmaine sorto tomorrow. Patient is medically stable for discharge. Was seen by oncology and they've cleared him for discharge as well. This pressure for further details. Patient Condition at Discharge: Stable Plan - Discharge Summary Discharge Medication List Clopidogrel [Plavix] 75 mg PO DAILY 07/02/16 [History] DULoxetine HCL [Cymbalta] 60 mg PO DAILY 07/02/16 [History] Dextroamphetamine/Amphetamine [Adderall] 10 mg PO BID 07/02/16 [History] Ondansetron Odt [Zofran ODT] 4 mg PO Q6H PRN 07/02/16 [History] Pantoprazole Sodium 40 mg PO DAILY 07/02/16 [History] levETIRAcetam [Keppra] 1,250 mg PO BID 07/02/16 [History] oxyCODONE HCL 30 mg PO Q6H PRN 07/02/16 [History] traZODone HCL 200 mg PO HS 07/02/16 [History] Docusate [Colace] 100 mg PO BID #60 cap 07/07/16 [Rx] Acetaminophen [Tylenol Arthritis] 1,300 mg PO Q6H PRN 07/30/16 [History] Escitalopram [Lexapro] 20 mg PO DAILY 07/30/16 [History] Gabapentin [Neurontin] 300 mg PO HS 07/30/16 [History] Follow up Appointment(s)/Referral(s): Bisi Jennings DO [Primary Care Provider] - 1 Week Luciano Montano MD [STAFF PHYSICIAN] - 08/02/16 Activity/Diet/Wound Care/Special Instructions: Diet: regular Activity: as tolerated Discharge Disposition: HOME SELF-CARE
--- NOTE | 2016-08-01 19:58 | P.CONS ---
History of Present Illness - Reason for Consult Consult date: 08/01/16 Brain tumor, ? recurrence - History of Present Illness The patient is a 55-year-old gentleman, who was recently seen by Dr. Montano in the office , to establish care, on 06/14/2016. The patient had presented initially in 04/15, in [place] with left-sided weakness and mental status changes. 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 A biopsy could not be performed initially because of an acute myocardial infarction at the same time. He was treated with neoadjuvant chemotherapy (type unknown), and concurrent radiation therapy. He subsequently had surgery which revealed mostly necrotic material. Progress notes that were seen by Dr. montano from his previous physician apparently described small area of oligodendroglioma. The patient was then placed on Avastin and had that for about 6 months. This was then discontinued due to kidney complications. The patient does have a long- standing history of CLL, which has been followed without any need for treatment so far. Interestingly, he gives a history of about 3 episodes of muscle weakness and pain due to elevated CPKs, the most recent in September 2015. Per his the cause for this episodes is not known. Results of any workup in this regard are not available to us. Per his , he has not had a muscle biopsy. When seen by Dr. montano in the office, the patient was complaining of increased generalized headaches, over the past few weeks as well as intermittent nausea. At that time apparently he had some weakness but overall and tolerating well. An MRI was done on 06/24/2016. The pt was then admitted earlier this month as over the prior week to 10 days, he had been having increased generalized weakness. Per his , he had developed progressive difficulty in walking, with muscles appearing to " contract", and "give out". He improved with supportive care and PT, and was discharged home. Previous MRI was ultimately obtained ( 08/18), and compared to the the one done on 06/24/16. There was localized increased enhancement in 1 location in the right posterior parietal lobe, felt to be either due to differences in technique or early progression. The pt was admitted again with intractable, global headache, with episodic n/ v starting 2-3 days ago, and progressive since then. CT brain was negative for any bleed, new ischemia or mass effect. He was thus admitted for further management, and the consult placed. Review of Systems Constitutional: Reports fatigue, Reports weakness Eyes: denies blurred vision, denies pain Ears: deny: decreased hearing, ear discharge, earache, tinnitus Ears, nose, mouth and throat: Denies headache, Denies sore throat Cardiovascular: Denies chest pain, Denies shortness of breath Respiratory: Denies cough Gastrointestinal: Reports nausea, Reports vomiting Genitourinary: Reports as per HPI Musculoskeletal: Reports frequent falls (no specific complaints) Integumentary: Denies pruritus, Denies rash Neurological: Reports as per HPI, Reports memory loss, Reports weakness (LUE/LLE ) Psychiatric: Reports confusion, Reports difficulty concentrating, Reports memory loss Endocrine: Reports fatigue Hematologic/Lymphatic: Reports as per HPI Past Medical History Past Medical History: Cancer, Deep Vein Thrombosis (DVT), Hyperlipidemia, Memory Impairment, Myocardial Infarction ([place]), Osteoarthritis (OA), Seizure Disorder Additional Past Medical History / Comment(s): brain cancer, leukemia Last Myocardial Infarction Date:: 2012 History of Any Multi-Drug Resistant Organisms: None Reported Past Surgical History: Cholecystectomy, Heart Catheterization With Stent Additional Past Surgical History / Comment(s): brain surgery x2, IVF filter, metaport, fatty tumor removals, left knee orthoscopic Past Anesthesia/Blood Transfusion Reactions: No Reported Reaction Date of Last Stent Placement:: 2010 Past Psychological History: Anxiety, Depression Smoking Status: Current every day smoker Past Alcohol Use History: None Reported Past Drug Use History: None Reported - Past Family History Mother Family Medical History: Chest Pain / Angina, Diabetes Mellitus Father History Unknown: Yes Medications and Allergies Home Medications Medication Instructions Recorded Confirmed Type Clopidogrel [Plavix] 75 mg PO DAILY 07/02/16 07/30/16 History DULoxetine HCL [Cymbalta] 60 mg PO DAILY 07/02/16 07/30/16 History Dextroamphetamine/Amphetamine 10 mg PO BID 07/02/16 07/30/16 History [Adderall] Ondansetron Odt [Zofran ODT] 4 mg PO Q6H PRN 07/02/16 07/30/16 History Pantoprazole Sodium 40 mg PO DAILY 07/02/16 07/30/16 History levETIRAcetam [Keppra] 1,250 mg PO BID 07/02/16 07/30/16 History oxyCODONE HCL 30 mg PO Q6H PRN 07/02/16 07/30/16 History traZODone HCL 200 mg PO HS 07/02/16 07/30/16 History Acetaminophen [Tylenol Arthritis] 1,300 mg PO Q6H PRN 07/30/16 07/30/16 History Escitalopram [Lexapro] 20 mg PO DAILY 07/30/16 07/30/16 History Gabapentin [Neurontin] 300 mg PO HS 07/30/16 07/30/16 History Allergies Allergy/AdvReac Type Severity Reaction Status Date / Time midazolam [From Versed] Allergy Unknown Verified 07/30/16 20:06 Physical Exam Vitals: Vital Signs Temp Pulse Resp BP Pulse Ox 08/01/16 08:00 16 08/01/16 07:00 98.6 F 51 L 16 93/60 93 L 08/01/16 00:00 55 L 16 07/31/16 21:39 97.6 F 55 L 16 128/77 95 Intake and Output 08/01/16 08/01/16 08/01/16 06:59 14:59 22:59 Output Total 300 Balance -300 Output: Urine 300 Other: Voiding Method Urinal Urinal # Voids 1 1 - Constitutional General appearance: no acute distress - EENT Eyes: EOMI, PERRLA ENT: hearing grossly normal, normal oropharynx - Neck Neck: no lymphadenopathy Thyroid: bilateral: normal size - Respiratory Respiratory: bilateral: CTA - Cardiovascular Rhythm: regular Heart sounds: normal: S1, S2 - Gastrointestinal General gastrointestinal: normal bowel sounds, soft - Integumentary Integumentary: normal - Neurologic Neurologic: CNII-XII intact, focal deficits (LUE strength 4+/5, LLE strength 4/ 5 . Left foot drop) - Musculoskeletal Musculoskeletal: left sided weakness - Psychiatric Psychiatric: A&O x's 3 Results CBC & Chem 7: 08/01/16 05:50 08/01/16 05:50 Labs: Abnormal Lab Results - Last 24 Hours (Table) 08/01/16 08/01/16 Range/Units 05:50 05:50 WBC 38.4 H* (3.8-10.6) k/uL RBC 4.25 L (4.30-5.90) m/uL Hgb 12.1 L (13.0-17.5) gm/dL Hct 35.9 L (39.0-53.0) % Plt Count 103 L (150-450) k/uL Lymphocytes # (Manual) 34.9 H (1.0-4.8) k/uL Glucose 132 H (74-99) mg/dL AST 14 L (17-59) U/L Total Protein 5.7 L (6.3-8.2) g/dL CT Scan - head: report reviewed MRI - head: report reviewed Assessment and Plan (1) History of brain cancer Narrative/Plan: At the time of the patient's previous discharge, [place] been [place]. After its receipt, it was submitted to the radiology department, and compared to the MRI done on 06/24/16 with an addendum issued. Reports of both MRIs were reviewed. As noted there is a possibility of progression in one area, though this is not definite by any means, and could represent differences in technique. The above, and implications were discussed with the patient and his in detail. At this time therefore we do not have any definite evidence of progression of the cancer. Thus it it cannot be stated if his current symptoms as well as other ongoing issues are due to progression of the cancer, versus long-term treatment related effects. Given the above, and the fact that about 6 weeks have elapsed since his last MRI, it would be reasonable to check another study. On this would give us a better idea regarding progression or not. The case was discussed with the admitting service in detail. The patient is doing much better in terms of his headaches, and tolerated his diet well today. They feel that the patient can be discharged today. Therefore the MRI of the brain will be ordered as an outpatient through the office. The patient does have a follow-up appointment with Dr. Montano scheduled. Status: Acute (2) CLL (chronic lymphocytic leukemia) Narrative/Plan: The patient's white count has shown some fluctuation, even during this admission, from the 40,000 range back into the high 30,000 range. This is approximately in the same range as his previous admission. Hemoglobin is normal. Overall ANC is also in the same range. Therefore there is no definite evidence of progression. He does have a mild, cytopenia with platelet counts well within a safe range at above 100,000. This is likely due to his CLL also. No acute intervention is required. Status: Acute
== END 2016-08-01 13:02 | disposition home or self-care (01) | DRG 842 ==
LOC: EC 19:01 → 5MS5E 07-31 00:50 → 5ONC 07-31 08:07
PROVIDERS: ADMIT Internal Medicine; ATTEND Internal Medicine
DX: C91.10 Chronic lymphocytic leukemia of B-cell type not having achieved remission (principal); F32.9 Major depressive disorder, single episode, unspecified; E78.5 Hyperlipidemia, unspecified; G43.909 Migraine, unspecified, not intractable, without status migrainosus; R26.2 Difficulty in walking, not elsewhere classified; M21.372 Foot drop, left foot; M62.81 Muscle weakness (generalized); R11.2 Nausea with vomiting, unspecified; R19.7 Diarrhea, unspecified; I67.9 Cerebrovascular disease, unspecified; I25.2 Old myocardial infarction; G40.909 Epilepsy, unspecified, not intractable, without status epilepticus; I25.10 Atherosclerotic heart disease of native coronary artery without angina pectoris; R41.3 Other amnesia; F41.9 Anxiety disorder, unspecified; M19.90 Unspecified osteoarthritis, unspecified site; F17.200 Nicotine dependence, unspecified, uncomplicated; Z83.3 Family history of diabetes mellitus; Z86.718 Personal history of other venous thrombosis and embolism; Z95.5 Presence of coronary angioplasty implant and graft; Z88.4 Allergy status to anesthetic agent; Z79.02 Long term (current) use of antithrombotics/antiplatelets; Z79.891 Long term (current) use of opiate analgesic; Z79.899 Other long term (current) drug therapy; Z90.49 Acquired absence of other specified parts of digestive tract; Z95.828 Presence of other vascular implants and grafts; Z82.49 Family history of ischemic heart disease and other diseases of the circulatory system; Z92.21 Personal history of antineoplastic chemotherapy; Z92.3 Personal history of irradiation; Z85.841 Personal history of malignant neoplasm of brain
CPT/HCPCS: 36415; 70450; 80053; 82150; 83690; 85025; 96361; 96374; 96375; 96376; 99285

== ENCOUNTER → 2016-08-17 | Outpatient (CLI) | payer MEDICARE ==
--- NOTE | 2016-08-18 00:10 | MR ---
EXAMINATION TYPE: MR brain wo/w con DATE OF EXAM: 08/17/2016 5:56 PM COMPARISON: NONE HISTORY: Hx leukemia/brain ca, surgery x 2 on brain, pt states this is a follow-up, no new symptoms CONTRAST: Standard multiplanar, multisequence MRI departmental protocol without and utilizing 20 mL intravenous MultiHance gadolinium contrast. FINDINGS: There is cerebral cortical atrophy. There is metal artifact related to right posterior ana etal craniotomy defect and postsurgical changes. There is extensive increased signal in the white mat ter of both parietal and occipital lobes on the FLAIR and T2 images. There are multiple small areas o f nodular enhancement in the right posterior parietal lobe at the marie-white matter junction that bimal sure up to 1 cm. There is no mass effect. There is mild enlargement of the ventricles. There is no si gn of intracranial hemorrhage. There is no mass effect. The brainstem appears intact. Sella turcica appears normal. There is no evidence of a posterior fossa mass. IMPRESSION: Cerebral atrophy and mild normal pressure type hydrocephalus. Postsurgical changes in the right poste rior parietal lobe with nodular enhancement at the marie-white matter junction that is stable compared to the oldest available previous exam of 08/28/2015. This probably relates to residual tumor and glio sis and surgical changes. I do not see evidence for progression of tumor. There is diffuse increased white matter signal in the parietal and occipital lobes that could relate to radiation therapy field. There is sparing of the anterior temporal and the frontal lobes. There is noted increased signal in the left mastoid sinus that is consistent with mastoiditis and unc hanged. There are multiple nodular areas of enhancement in both parotid glands that is consistent wit h enlarged lymph nodes that measure up to 1 cm. This appears stable compared to 06/24/2016 MR scan an d 07/02/[address] scan.
== END | disposition home or self-care (01) ==
LOC: RADMRIMAIN 16:42
PROVIDERS: ATTEND Internal Medicine Hematology & Oncology
DX: C71.9 Malignant neoplasm of brain, unspecified (principal); G91.9 Hydrocephalus, unspecified; Z98.890 Other specified postprocedural states
CPT/HCPCS: 70553; A9577